=== PATIENT | female | born 1950 | race Caucasian/White ===

== ENCOUNTER → 2020-04-05 08:21 | Outpatient (BNVA) | payer MEDICARE, SELFPAY | PROVIDERS: PCP Physician Assistant Medical; Visit Provider Urology | DX: N28.1 Cyst of kidney, acquired (principal); R31.29 Other microscopic hematuria | CPT/HCPCS: 81002; 99202 ==

== ENCOUNTER 2020-05-24 08:48 | Outpatient (REF) | payer MEDICARE, SELFPAY ==
[2020-05-25 16:16] LABS: Urine Cytology See Pathology rpt
== END 2020-05-24 08:49 | disposition home or self-care (01) ==
LOC: CF 08:48
PROVIDERS: Visit Provider Urology
DX: R31.29 Other microscopic hematuria (principal); N28.1 Cyst of kidney, acquired; Z87.891 Personal history of nicotine dependence
CPT/HCPCS: 52000; 81002; 88112; 99212

== ENCOUNTER → 2021-05-30 08:28 | Outpatient (BNVA) | payer MEDICARE, SELFPAY | PROVIDERS: Visit Provider Urology | DX: N28.1 Cyst of kidney, acquired (principal); R31.29 Other microscopic hematuria | CPT/HCPCS: Q3014 ==

== ENCOUNTER 2022-05-15 08:16 | Outpatient (REF) | payer MEDICARE, SELFPAY ==
--- NOTE | ~2022-05-15 | US_ITS ---
EXAMINATION: US RETROPERITONEAL LIMITED (RENAL ONLY) CLINICAL INFORMATION: Calculus of kidney. COMPARISON: None TECHNIQUE: Real-time imaging of the kidneys. FINDINGS: RIGHT KIDNEY: 12.0 x 5.3 x 5.8 cm (SAG x AP x TRV). The kidney is normal in size and contour. Renal cortical thickness is normal. No hydronephrosis. Cyst upper pole measures 18 mm. This appears simple, Bosniak 1 no follow-up indicated. Diffuse increased cortical echogenicity. Non-obstructing stone lower pole measures 4 mm, 3 mm an upper pole stone measures 5 mm. LEFT KIDNEY: 10.2 x 4.6 x 4.9 cm (SAG x AP x TRV). The kidney is normal in size and contour. No renal calculi or hydronephrosis. Cyst upper pole measures 2.9 cm appears simple Bosniak 1 no follow-up indicated. Minimal fullness of the renal collecting system nonspecific. No obstructing source seen. US/US renal BI IMPRESSION: Nonobstructing right-sided renal calculi. No hydronephrosis. Consider CT as warranted clinically. Mild fullness of the left renal collecting system.
== END 2022-05-15 08:17 | disposition home or self-care (01) ==
LOC: HO.US 08:16
PROVIDERS: Visit Provider Urology
DX: N20.0 Calculus of kidney (principal); N28.1 Cyst of kidney, acquired
CPT/HCPCS: 76775

== ENCOUNTER → 2022-05-30 11:08 | Outpatient (BNVA) | payer MEDICARE, SELFPAY | PROVIDERS: PCP Physician Assistant Medical; Visit Provider Urology | DX: N20.0 Calculus of kidney (principal); N28.1 Cyst of kidney, acquired; R31.29 Other microscopic hematuria | CPT/HCPCS: Q3014 ==

== ENCOUNTER 2023-05-21 10:23 | Outpatient (REF) | payer MEDICARE, SELFPAY ==
--- NOTE | ~2023-05-21 | US_ITS ---
EXAMINATION: US RETROPERITONEAL LIMITED (RENAL ONLY) CLINICAL INFORMATION: Calculus of kidney. COMPARISON: Renal ultrasound 05/15/2022. TECHNIQUE: Real-time imaging of the kidneys. FINDINGS: RIGHT KIDNEY: 11.2 x 6.2 x 6.1 cm (SAG x AP x TRV). The kidney is normal in size and contour. Renal cortical thickness is normal. No renal calculi or hydronephrosis. Cystic focus right renal interpolar region measuring up to 2.5 cm, simple appearing, not requiring follow-up. Mild caliectasis. Increased renal echogenicity potentially representing elements of medical renal disease. LEFT KIDNEY: 10.1 x 5.3 x 4.2 cm (SAG x AP x TRV). The kidney is normal in size and contour. Renal cortical thickness is normal. No renal calculi or hydronephrosis. Cystic focus left renal lower pole measuring up to 3.8 cm, simple appearing, not requiring follow-up. Mild calyectasis.Increased renal echogenicity potentially representing elements of medical renal disease. US/US renal BI IMPRESSION: 1. No nephrolithiasis or hydronephrosis. 2. Bilateral simple appearing renal cysts the largest measuring up to 3.8 cm, which do not require follow-up. 3. Bilateral increased renal echogenicity potentially representing elements of medical renal disease.
== END 2023-05-21 10:24 | disposition home or self-care (01) ==
LOC: HO.HMGCX 10:23
PROVIDERS: PCP Physician Assistant Medical; Visit Provider Urology
DX: N20.0 Calculus of kidney (principal)
CPT/HCPCS: 76775

== ENCOUNTER 2023-05-31 13:26 | Outpatient (AMB) | payer MEDICARE, SELFPAY ==
--- NOTE | 2023-05-31 13:56 | A.OFFVIS_ITS ---
Intake Intake Visit Reasons: 1Y US(SET) Intake Note: Patient presents today for a yearly follow up Meds- None Allergies to Antibiotic- No Known Allergies Blood Thinner- None Rn Embedded Required: No Accompanied by: Self / Same As Patient Allergies No Known Allergies [No Known Allergies*] Allergy (Verified 05/31/23 14:00) Medication List - Last Reconciled 05/31/23 by He Garcia MD levothyroxine 137 mcg PO DAILY lisinopril 10 mg PO DAILY oxybutynin chloride ER 5 mg PO DAILY 30 days HPI HPI Comments History of Present Illness Details Marianne hicks is a very pleasant female. She is a patient of Dr. Paiz. early is seen for the following urologic conditions - microscopic hematuria Discussed imaging results Stable cysts Has new symptoms of urinary urgency and frequency And follow-up with bathroom planning Has minor stress incontinence Discussed trial of overactive bladder medications Oxybutynin provided 2 month follow-up tele Complex renal cyst and hematuria Hematuria was diagnosed during - had noted gross hematuria which responded to ciprofloxacin through PCP and presumed UTI They are here for the - Since the last visit the patient has - hematuria has resolved, test negative today Relevant medical history for - 40 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 Radiographic imaging: - CT KUB 03/31 bilateral renal cysts, 2.5 cm - 05/02 renal ultrasound, bilateral renal cysts up to 2.5 cm, 6 mm stone right side - 05/03 renal ultrasound, bilateral cysts, 4 mm and 5 mm stones on right side Other investigations - cytology, normal Cystoscopy findings normal. Therapeutic plan - review in 12 months [facility] Medical History Cough Pneumonitis Shoulder stiffness Shoulder weakness Shoulder pain Dislocation of right shoulder joint Social History Years Smoked: 10 years Review of Systems Const Denies chills and Denies fever(s) Card Reports no additional complaints and Denies syncope Resp Denies cough GI Denies abdominal pain and Denies heartburn Reports as per HPI and Denies change in libido Neuro Denies syncope Psych Denies change in libido Endo Denies change in libido Physical Exam Const General: cooperative, healthy appearing, comfortable and no acute distress Orientation/consciousness: patient oriented x3 HEENT Face and sinus: Yes normal facial exam Mouth: moist mucous membranes Neck Neck: Yes normal visual inspection, Yes full ROM and Yes trachea midline Chest Chest palpation & inspection: normal inspection of the chest Resp Effort & Inspection: normal respiratory effort, able to speak in complete sentences and no respiratory distress GI Inspection: Yes normal to inspection Back/Spine/Pelvis Cervical Spine: normal cervical lordosis Thoracic/Lumbar Spine: thoracic and lumbar spine normal to inspection Skin General skin exam: no rashes or lesions noted Neuro General: patient oriented x3, gait normal, tone normal and moves all extremities Extrem General: Yes normal to inspection and Yes capillary refill normal Results AMB Urinalysis, Automated UA Leukoctes 0 Martha/uL Last Edit by Fior Olivo [facility] on 05/31/23 14 :07 UA Nitrite Negative Last Edit by Fior Olivo [facility] on 05/31/23 14: 07 UA Urobilinogen 0.2 mg/dL Last Edit by Fior Olivo [facility] on 4 14:07 UA Protein 0 mg/dL Last Edit by Fior Olivo [facility] on 05/31/23 14:07 UA pH 7.0 Last Edit by Fior Olivo [facility] on 05/31/23 14:07 UA Blood 0 Roger/uL Last Edit by Fior Olivo [facility] on 05/31/23 14:07 UA Specific [place] 1.010 Last Edit by Fior Olivo [facility] on 14:07 UA Ketone Negative Last Edit by Fior Olivo [facility] on 05/31/23 14:0 7 UA Bilirubin 0 mg/dL Last Edit by Fior Olivomalachi Olivo [facility] on 05/31/23 14: 07 UA Glucose 0 mg/dL Last Edit by Fior Olivomalachi Olivo [facility] on 05/31/23 14:07 Results Reviewed Results Reviewed: Laboratory Last Values Urine pH (Auto) 7.0 05/31/23 14:02 Specific [place] (Auto) 1.010 05/31/23 14:02 Urine Protein (Auto) 0 mg/dL 05/31/23 14:02 Glucose (UA)(Auto) 0 mg/dL 05/31/23 14:02 Urine Ketones (Auto) Negative 05/31/23 14:02 Urine Blood (Auto) 0 Roger/uL 05/31/23 14:02 Urine Nitrite (Auto) Negative 05/31/23 14:02 Urine Bilirubin (Auto) 0 mg/dL 05/31/23 14:02 Urine Urobilinogen (Auto) 0.2 mg/dL 05/31/23 14:02 Leukocyte Esterase (Auto) 0 Martha/uL 05/31/23 14:02 Assessment & Plan Assessment & Plan (1) Bladder instability: Code(s): N32.89 - Other specified disorders of bladder Plan Trial oxybutynin Orders: Orders AMB Urinalysis Automated Today R33.9 - Retention of urine, unspecified Medications: New oxybutynin chloride ER 5 mg PO DAILY 30 days 30 tabs 1RF N32.81 - Overactive bladder, N32.89 - Other specified disorders of bladder, R39.15 - Urgency of urination Patient Instructions: Imaging studies, laboratory and physical exam results were discussed and reviewed in detail. No major barriers to patient understanding were identified. An opportunity to ask questions regarding the treatment plan was provided. All questions were answered. The patient expressed understanding and agreement with the above treatment plan. The patient is aware they should contact our office by phone for worsening of their current condition or the appearance of new urologic symptoms. Compliance is encouraged with any medications and followup testing that is ordered. It is a privilege to participate in the urologic care of your patient. If you have any questions or concerns regarding treatment for the above conditions, or other urologic issues, please do not hesitate to contact me. The office telephone contact is [phone]. This note is constructed using voice recognition software. While every effort has been made to ensure accuracy department manager errors may have been included. Yours sincerely, Dr He Garcia MD, ETEL[facility] - Urology Providers of Expert, Compassionate Care for the Genitourinary System Coding Level of Care Code Est Pt Level 4 (13316) Diagnoses Bladder instability N32.89
== END 2023-05-31 14:42 | disposition home or self-care (01) ==
PROVIDERS: Visit Provider Urology
DX: R33.9 Retention of urine, unspecified (principal); N32.89 Other specified disorders of bladder
CPT/HCPCS: 99214

== ENCOUNTER → 2023-05-31 13:26 | Outpatient (BNVA) | payer MEDICARE, SELFPAY | PROVIDERS: Visit Provider Urology | DX: N32.89 Other specified disorders of bladder (principal) | CPT/HCPCS: 81003; 99212 ==

== ENCOUNTER 2023-07-31 14:52 | Outpatient (AMB) | payer MEDICARE, SELFPAY ==
--- NOTE | 2023-07-31 14:53 | A.OFFVIS_ITS ---
Intake Visit Reasons: 2m follow up Intake Note: Patient presents today for a 2 month follow-up via phone: Meds- Oxybutynin Allergies to Antibiotic- No Known Allergies Blood Thinner- None Race Starter Required: No Accompanied by: Self / Same As Patient Allergies No Known Allergies [No Known Allergies*] Allergy (Verified 05/31/23 14:00) Medication List - Last Reconciled 07/31/23 by He Garcia MD levothyroxine 137 mcg PO DAILY lisinopril 10 mg PO DAILY oxybutynin chloride ER 10 mg PO DAILY 30 days HPI Comments Details: Marianne hicks is a very pleasant female. She is a patient of Dr. Paiz. early is seen for the following urologic conditions - microscopic hematuria - instability of bladder Telemedicine Evaluation 15 min Consultation ipadio Hilario Video attempted Good reasonable response to oxybutynin 5 mg Would like to try increased dose Prescription for 10 mg provided Two month follow-up tele Has new symptoms of urinary urgency and frequency And follow-up with bathroom planning Has minor stress incontinence Complex renal cyst and hematuria Hematuria was diagnosed during - had noted gross hematuria which responded to ciprofloxacin through PCP and presumed UTI They are here for the - Since the last visit the patient has - hematuria has resolved, test negative today Relevant medical history for - 40 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 Radiographic imaging: - CT KUB 03/31 bilateral renal cysts, 2.5 cm - 05/02 renal ultrasound, bilateral renal cysts up to 2.5 cm, 6 mm stone right side - 05/03 renal ultrasound, bilateral cysts, 4 mm and 5 mm stones on right side Other investigations - cytology, normal Cystoscopy findings normal. Therapeutic plan - review in 12 months [facility] Medical History Cough Pneumonitis Shoulder stiffness Shoulder weakness Shoulder pain Dislocation of right shoulder joint Social History Years Smoked: 10 years Review of Systems Const Denies chills and Denies fever(s) Card Reports no additional complaints and Denies syncope Resp Denies cough GI Denies abdominal pain and Denies heartburn Reports as per HPI and Denies change in libido Neuro Denies syncope Psych Denies change in libido Endo Denies change in libido Physical Exam Const General: cooperative, healthy appearing, comfortable and no acute distress Orientation/consciousness: patient oriented x3 HEENT Face and sinus: Yes normal facial exam Mouth: moist mucous membranes Neck Neck: Yes normal visual inspection, Yes full ROM and Yes trachea midline Chest Chest palpation & inspection: normal inspection of the chest Resp Effort & Inspection: normal respiratory effort, able to speak in complete sentences and no respiratory distress GI Inspection: Yes normal to inspection Back/Spine/Pelvis Cervical Spine: normal cervical lordosis Thoracic/Lumbar Spine: thoracic and lumbar spine normal to inspection Skin General skin exam: no rashes or lesions noted Neuro General: patient oriented x3, gait normal, tone normal and moves all extremities Extrem General: Yes normal to inspection and Yes capillary refill normal Assessment & Plan Assessment & Plan (1) Bladder instability: Code(s): N32.89 - Other specified disorders of bladder Category: Medical Plan Two month follow-up tele Medications: New oxybutynin chloride ER 10 mg PO DAILY 30 tabs 1RF 30 days N32.81 - Overactive bladder, N32.89 - Other specified disorders of bladder, R39.15 - Urgency of urination Discontinued oxybutynin chloride ER Discontinued Reason: Patient Completed Course 5 mg PO DAILY 30 days 30 tabs 1RF N32.81 - Overactive bladder, N32.89 - Other specified disorders of bladder, R39.15 - Urgency of urination Patient Instructions: Imaging studies, laboratory and physical exam results were discussed and reviewed in detail. No major barriers to patient understanding were identified. An opportunity to ask questions regarding the treatment plan was provided. All questions were answered. The patient expressed understanding and agreement with the above treatment plan. The patient is aware they should contact our office by phone for worsening of their current condition or the appearance of new urologic symptoms. Compliance is encouraged with any medications and followup testing that is ordered. It is a privilege to participate in the urologic care of your patient. If you have any questions or concerns regarding treatment for the above conditions, or other urologic issues, please do not hesitate to contact me. The office telephon e contact is [phone]. This note is constructed using voice recognition software. While every effort has been made to ensure accuracy purifying plant operator errors may have been included. Yours sincerely, Dr He Garcia MD, ET[facility] - Urology Providers of Expert, Compassionate Care for the Genitourinary System Coding Level of Care Code Tele Est Pt Level 3 (84855) Diagnoses Bladder instability N32.89
== END 2023-07-31 15:09 | disposition home or self-care (01) ==
LOC: HO.HUSH 14:53
PROVIDERS: PCP Physician Assistant Medical; Visit Provider Urology
DX: N32.89 Other specified disorders of bladder (principal)
CPT/HCPCS: 99213

== ENCOUNTER → 2023-07-31 14:52 | Outpatient (BNVA) | payer MEDICARE, SELFPAY | PROVIDERS: PCP Physician Assistant Medical; Visit Provider Urology ==

== ENCOUNTER 2024-04-21 08:47 | Outpatient (REF) | payer MEDICARE, SELFPAY ==
--- OUTSIDE RECORDS SUMMARY | 2024-04-21 09:10 | XMS_ITS | Encounter Summary ---
Author Organization [email or web address] Address [address] [place] [address] Care Team Providers Care Glue Jointer Operator Name Role Phone Unavailable Primary Care Provider Unavailabl e Encounter Details Date Type Department Care Team (Latest Contact Info) Description 04/08/2024 Travel Social History Tobacco Use Types Packs/Day Years Used Date Smoking Tobacco: Never Assessed Depression Answer Date Recorded Patient Health Questionnaire-9 Score 6 04/09/2024 Patient Health Questionnaire-9 Score 6 04/09/2024 Last PHQ-9: Questionnaire Data Not on file 0 04/09/2024 Housing Stability Answer Date Recorded What is your housing situation today? I have troy rosario 04/09/[address] you li ve. Do you have problems with any of the following? None of the above 04/09/2024 Food Insecurity Answer Date Recorded Within the past 12 months, y ou worried that your food would run out before you got money to buy more: Never True 04/09/2024 Within the past 12 months,th e food you bought just didn't last and you didn't have enough money to get more: Never True Transportation Answer Date Recorded In the past 12 months, has l ack of transportation kept you from medical appts, meetings, work or from getting things needed for daily living? No 04/09/2024 Utilities Answer Date Recorded In the past 12 months, has t he electric, gas, oil or water company threatened to shut off services in your home? No 04/09/2024 Depression Answer Date Recorded Patient Health Questionnaire-2 Score 2 04/09/2024 Internet Access Answer Date Recorded Internet Access Q1 Yes 04/09/2024 Internet Access Q2 Not on file 04/09/2024 Comments Unknown Sex and Gender Information Value Date Recorded Sex Assigned at Female 04/08/2024 8:23 AM EST Legal Sex Female 10:49 AM EDT Gender Identity Female 04/08/2024 8:23 AM EST Sexual Orientation Straight 04/08/2024 8: 23 AM EST documented as of this encounter Plan of Treatment Not on file documented as of this encounter Visit Diagnoses Not on filedocumented in this encounter
--- OUTSIDE RECORDS SUMMARY | 2024-04-21 09:10 | XMS_ITS | Encounter Summary ---
Author Organization [employer] Address [address] [place] [address] Care Team Providers Care Stenocaptioner Name Role Phone Name, Escobar VILLATORO Primary Care Provider [phone] Encounter Details Date Type Department Care Team (Latest Contact Info) Description 04/09/2024 Travel Social History Tobacco Use Types Packs/Day Years Used Date Smoking Tobacco: Never Smokeless Tobacco: Never Alcohol Use Standard Drinks/Week Comments Yes 0 (1 standard drink = 0.6 oz pur e alcohol) Depression Answer Date Recorded Patient Health Questionnaire-9 Score 6 04/09/2024 Patient Health Questionnaire-9 Score 6 04/09/2024 Last PHQ-9: Questionnaire Data Not on file 0 04/09/2024 Housing Stability Answer Date Recorded What is your housing situation today? I have troy ponce 04/09/[address] you li [...] Diagnoses Not on filedocumented in this encounter Additional Health Concerns Assessment Noted Time PHQ-9 Depression Total Score: 6 04/09/19 11:16 AM EST documented as of this encounter Care Teams Stenocaptioner Relationship Specialty Start Date End Date Name, MD Escobar [address] [place] [address] PCP - General Internal Medicine 04/09/24 documented as of this encounter
--- OUTSIDE RECORDS SUMMARY | 2024-04-21 09:10 | XMS_ITS | Encounter Summary ---
Author Organization [employer] Address [address] [place] [address] Care Team Providers Care Leader Tier Name Role Phone Unavailable Primary Care Provider Unavailabl e Reason for Visit * Reason Comments Pre-visit Planning SDOH unable to reach LVM Encounter Details Date Type Department Care Team ([facility] st Contact Info) Description 04/01/2024 Patient Outreach [facility] [address] [place] [address] Name, MD Escobar [address] [place] [address] Pre-visit Planning (SDOH unable to reach LVM ) Social History Tobacco Use Types Packs/Day Years Used Date Smoking Tobacco: Never Assessed Comments Unknown Sex and Gender Information Value Date Recorded Sex Assigned at Female 04/08/2024 8:23 AM EST Legal Sex Female 10:49 AM EDT Gender Identity Female 04/08/2024 8:23 AM EST Sexual Orientation Straight 04/08/2024 8: 23 AM EST documented as of this encounter Progress Notes * Vicky Santana - 04/01/2024 12:54 PM EST CC Vicky Marshall placed outbound call to patient to complete pre-visit planning. No answer at this time. Patient name and were not confirmed. CC left voicemail requesting return call. Direct contactinformation provided. documented in this encounter Plan of Treatment Not on file documented as of this encounter Visit Diagnoses Not on filedocumented in this encounter
--- OUTSIDE RECORDS SUMMARY | 2024-04-21 09:10 | XMS_ITS | Encounter Summary ---
Author Organization [employer] Address [address] [place] [address] [address] [place] [address] Care Team Providers Care Clinical Laboratory Director Name Role Phone NameEscobar MD Primary Care Provider [phone] Reason for Referral * Imaging (Routine) - Authorized Specialty Diagnoses / Procedures Referred By Contac t Referred To Contact Radiology Diagnoses Osteoporosis without current pathological fracture, unspecified osteoporosis type Procedures BD DEXA Axial NameEscobar MD [address] [place] [id number] Phone: tel: fax: [address] Phone: tel: fax: Referral ID Status Reason Start Date Expiration Date V isits Requested Visits Authorized [id number] Authorized 04/09/2024 04/09/2025 1 1 Reason for Visit * Reason Comments New patient visit Encounter Details Date Type Department Care Team (Late st Contact Info) Description 04/09/2024 10:45 AM EST Office Visit [facility] [address] [place], [place] [id number] Escobar Frazier MD [address] [place], [place] [id number] Hypertension, unspecified type (Primary Dx); Hypothyroidism, unspecified type; Osteoporosis without current pathological fracture, unspecified osteoporosis type; Screening for cholesterol level; Screening for diabetes mellitus; Former smoker; Overactive bladder Social History Tobacco Use Types Packs/Day Years Used Date Smoking Tobacco: Never Smokeless Tobacco: Never Tobacco Cessation:Counseling Given: Not Answered Alcohol Use Standard Drinks/Week Comments Yes 0 [...] AM EST documented as of this encounter Last Filed Vital Signs Vital Sign Reading Time Taken Comments Blood Pressure 136/92 04/09/2024 10:27 AM EST Pulse 82 04/09/2024 10:27 AM EST Temperature 36 ??C (96.8 ??F) 04/09/2024 10:27 AM EST Respiratory Rate 21 04/09/2024 10:27 AM EST Oxygen Saturation 97% 04/09/2024 10:27 AM EST Inhaled Oxygen Concentration - - Weight 92.6 kg (204 lb 3.2 oz) 04/09/2024 10:27 AM EST Height 157.5 cm (5' 2 ) 04/09/2024 10:27 AM EST Body Mass Index 37.35 04/09/2024 10:27 AM EST documented in this encounter Progress Notes * Escobar Frazier, - 04/09/2024 10:45 AM EST Subjective Patient ID: Marianne Hodges is a 73 y.o. female who presents for New patient visit. Patient comes for the first time. She is transferring from [facility]. She has a past medical history of hypertension, hypothyroidism, osteoporosis, overactive bladder. She is a former smoker. The patient is up-to-date with low radiation CT scans and mammograms that she is doing at [facility]. She tells me she is up-to-date with her colonoscopy. Current medication regimen includes lisinopril and Synthroid. She asked me to refill medication she was using for overactive bladder. The patient is a retired hairdresser. She lives with her . The patient has custody of her [facility] that has severe autism. The patient exercises regularly. In general she tries to avoid using medications. She has been trying to treat her osteoporosis with diet and exercise. In the past she refused the use of Fosamax. Her last bone density test was in 2021. She has a good exercise tolerance. No chest pains or shortness of breath. She goes to the gym several times a week and feels frustrated about her inability to lose any weight. Review of Systems Constitutional: Negative for chills and fever. HENT: Negative for sore throat. Respiratory: Negative for cough, shortness of breath and wheezing. Cardiovascular: Negative for chest pain, palpitations and leg swelling. Gastrointestinal: Negative for abdominal pain. Visit Vitals BP (!) 136/92 (BP Location: Left arm, Patient Position: Sitting, BP Cuff Size: Adult) Pulse 82 Temp 96.8 ??F (36 ??C) (Temporal) Resp 21 Ht 5' 2 (1.575 m) Wt 204 lb 3.2 oz (92.6 kg) SpO2 97% BMI 37.35 kg/m?? Smoking Status Never BSA 2.01 m?? Objective Physical Exam Constitutional: Appearance: Normal appearance. Cardiovascular: Rate and Rhythm: Normal rate and regular rhythm. Heart sounds: No murmur heard. No gallop. Pulmonary: Effort: Pulmonary effort is normal. No respiratory distress. Breath sounds: Normal breath sounds. No wheezing. Musculoskeletal: Right lower leg: No edema. Left lower leg: No edema. Neurological: Mental Status: She is alert. Assessment/Plan Diagnoses and all orders for this visit: Hypertension, unspecified type Comments: Continue lisinopril. Recheck CMP. Orders: - CBC auto differential; Future - Comprehensive Metabolic Panel; Future Hypothyroidism, unspecified type Comments: Continue current dose of levothyroxine for now. Recheck TSH. Orders: - TSH W/Reflex to FT4; Future Osteoporosis without current pathological fracture, unspecified osteoporosis type Comments: Continue exercising. We discussed importance of adequate calcium and vitamin D intake. Check CMP and vitamin D levels. Recheck DEXA scan. Orders: - Comprehensive Metabolic Panel; Future - Vitamin D, 25-Hydroxy, Total, Immunoassay; Future - BD DEXA Axial; Future Screening for cholesterol level Comments: Check fasting lipids Orders: - Lipid Panel, Standard; Future Screening for diabetes mellitus Comments: Check fasting glucose and hemoglobin A1c Orders: - Hemoglobin A1c; Future Former smoker Comments: Continue yearly low radiation CT scan. She quit smoking 13 years ago. Overactive bladder Comments: I refilled the patient's oxybutynin as requested. Orders: - oxybutynin XL (Ditropan-XL) 5 MG 24 hr tablet; Take 1 tablet (5 mg) by mouth Once per day. documented in this encounter Plan of Treatment Scheduled Orders Name Type Priority Associated Diagnoses Orde r Schedule CBC auto differential Lab Routine Hypertension, unspecified type Expected: 04/09/2024 (Approximate), Expires: 04/09/2025 Comprehensive Metabolic Panel Lab Routine Hypertension, unspecified type Osteoporosis without current pathological fracture, unspecified osteoporosis type Expected: 04/09/2024 (Approximate), Expires: 04/09/2025 Lipid Panel, Standard Lab Routine Screening for cholesterol level Expected: 04/09/2024 (Approximate), Expires: 04/09/2025 Hemoglobin A1c Lab Routine Screening for diabetes mellitus Expected: 04/09/2024 (Approximate), Expires: 04/09/2025 Vitamin D, 25-Hydroxy, Total, Immunoassay Lab Routine Osteoporosis without current pathological fracture, unspecified osteoporosis type Expected: 04/09/2024 (Approximate), Expires: 04/09/2025 BD DEXA Axial Imaging Routine Osteoporosis without current pathological fracture, unspecified osteoporosis type Expected: 04/09/2024, Expires: 04/09/2025 TSH W/Reflex to FT4 Lab Routine Hypothyroidism, unspecified type Expected: 04/09/2024 (Approximate), Expires: 04/09/2025 documented as of this encounter Visit Diagnoses Diagnosis Hypertension, unspecified type- Primary Hypothyroidism, unspecified type Osteoporosis without current pathological fracture, unspecified osteoporosis type Screening for cholesterol level Screening for diabetes mellitus Former smoker Personal history of tobacco use, presenting hazards to health Overactive bladder Hypertonicity of bladder documented in this encounter Additional Health Concerns Assessment Noted Time PHQ-9 Depression Total Score: 6 04/09/19 25 11:16 AM EST documented as of this encounter Care Teams Clinical Laboratory Director Relationship Specialty Start Date End Date Name, MD Escobar [address] [place] [address] PCP - General Internal Medicine 04/09/24 documented as of this encounter
--- OUTSIDE RECORDS SUMMARY | 2024-04-21 09:11 | XMS_ITS | Clinical Summary ---
Author Organization [employer] Address [address] [place] [address] [address] [address] Care Team Providers Care Laboratory Engineer Name Role Phone Name, Escobar VILLATORO Primary Care Provider [phone] Allergies No known active allergies Medications levothyroxine (Synthroid, Levoxyl) 137 MCG tablet Active lisinopril 10 MG tablet Active oxybutynin XL (Ditropan-XL) 5 MG 24 hr tabletIndicati ons:Overactive bladder Take 1 tablet (5 mg) by mouth Once per day. 30 tablet 2 5 025 Active oxybutynin XL (Ditropan-XL) 5 MG 24 hr tablet Take 1 tablet by mouth Once per day. 4 025 Discontinued(Re order (will not trigger notification to Pharmacy)) Active Problems Problem Noted Date Diagnosed Date Hypothyroidism 04/09/2024 Hypertension 04/09/2024 Osteoporosis without current pathological fractu re 04/09/2024 History of colonoscopy 04/09/2024 Encounters Date Type Department Care Team Description 04/09/2024 10:45 AM EST Office Visit [facility] [address] [place] [address] Name, MD Escobar Hypertension, unspecified type (Primary Dx); Hypothyroidism, unspecified type; Osteoporosis without current pathological fracture, unspecified osteoporosis type; Screening for cholesterol level; Screening for diabetes mellitus; Former smoker; Overactive bladder 04/09/2024 Travel 04/08/2024 Travel 04/01/2024 Patient Outreach [facility] [address] [place] [address] Name, MD Escobar Pre-visit Planning ([facility] unable to reach M ) from Last 3 Months Immunizations Name Administration Dates Next Due Influenza High-dose Quadriva lent Preservative Free 11/24/2021,12/24/2019 Influenza Injectable Quadriv alant Preservative Free IIV4 MDCK 12/18/2016 Influenza Quadrivalent Adjuvanted 12/23/2020 Influenza, High Dose Seasona l, Preservative Free 01/01/2023,11/24/2017 Influenza, IIV3, injectable 01/13/2016,0 11/19/2014,12/14/2013,11/25,12/21/2011,12/15/2010,01/23/2010 ,12/04/2008,12/22/2007,01/02/2007 Influenza, trivalent, adjuvanted 12/14/2023,11/10 Novel [id number], preservative-free 03/23/2009 Pneumococcal Conjugate PCV 13 02/04/2018 Pneumococcal Polysaccharide PPSV23 12/24/2019, Td (adult), 5 Lf tetanus tox oid, preservative free, adsorbed 06/26/2022 Td (adult), unspecified 10/02/2004 Tdap 01/14/2012 Zoster, Recombinant 08/03/2020,04/07/2020 Zoster, live 02/02/2013 Social History Tobacco Use Types Packs/Day Years [...] Orientation Straight 04/08/2024 8: 23 AM EST Last Filed Vital Signs Vital Sign Reading [...] Mass Index 37.35 04/09/2024 10:27 AM EST Plan of Treatment Health Maintenance Due Date Last Done Comments CT Colonography 1952 Colonoscopy 1952 Colorectal Cancer Screening 1952 FIT DNA/Cologuard 1952 FIT 1952 FOBT 1952 Lipid Panel 1952 Sigmoidoscopy 1952 Alcohol/Substance Use Screening 1964 Hepatitis C Screening 1970 Mammogram 1992 COVID-19 Vaccine ( season) 2023 12/14/2021, 07/06/2021, 02/03/2021, Additional history exists Depression Screening 04/09/2025 04/09/2024, 04/09/19 SDOH Screening 04/09/2025 04/09/2024 Tobacco Screening 04/09/2025 04/09/2024 RSV Patients and Patients Aged 60 years or older (1 - 1-dose 75+ series) 10/28/2027 DTaP/Tdap/Td Vaccines (3 - Td or Tdap) 06/26/2032 06/26/2022, 01/14/2012, 10/02/2004 Pneumococcal Vaccine: 50+ Years Completed 12/24/2019, 02/04/2018, 03/08/2010 Zoster Vaccines Completed 08/03/2020, 03/12, 02/02/2013 Influenza Vaccine Completed 12/14/2023, , 11/24/2021, Additional history exists HIB Vaccines Aged Out No longer eligi ble based on patient's age to complete this topic HPV Vaccines Aged Out No longer eligi ble based on patient's age to complete this topic Hepatitis A Vaccines Aged Out No long er eligible based on patient's age to complete this topic Hepatitis B Vaccines Aged Out No long er eligible based on patient's age to complete this topic IPV Vaccines Aged Out No longer eligi ble based on patient's age to complete this topic Meningococcal Vaccine Aged Out No fabricio gianfranco eligible based on patient's age to complete this topic RSV under 20 months Aged Out No longe r eligible based on patient's age to complete this topic Rotavirus Vaccines Aged Out No longer eligible based on patient's age to complete this topic Insurance [facility] Care Teams Laboratory Engineer Relationship Specialty Start Date End Date Name, MD Escobar [address] [place] [address] PCP - General Internal Medicine 04/09/24
--- OUTSIDE RECORDS SUMMARY | 2024-04-21 09:11 | XMS_ITS | Clinical Summary ---
Author Organization [facility] Address [address] [place] [address] Phone Care Team Providers Care Chief Marketing Officer Name Role Phone Name, Escobar VILLATORO Primary Care Provider [phone] Encounters Date Type Department Care Team Description 01/27/2024 11:15 AM EST - 01/27/2024 11:59 PM EST Hospital Encounter [facility] CT Scan [address] [place] [address] Personal history of nicotine dependence Discharge Disposition: Home or Self Care 01/24/2024 Telephone Lung Screening Program - [place] [address] [facility] [address] [place] [id number] [place] Appointment (reminder) from Last 3 Months Surgical History Surgery Date Site/Laterality Comments BUNIONECTOMY in the 's PROCEDURE: NV CORRJ HLX VLGS BNCTY SESMDC W/DOUBLE OSTEOTOMY COLONOSCOPY Dec 2014 PROCEDURE: HISTORICAL COLONOSCOPY; COMMENT: diminutive polyps, diverticulosis, ext hemorrhoids Medical History Medical History Date Comments Unspecified hypothyroidism 05/30/2005 DX:Un specified hypothyroidism Allergic rhinitis, cause unspecified 05/30/2005 DX:Allergic rhinitis, cause unspecified Osteopenia after menopause 05/30/2005 DX:Os teopenia after menopause Osteoarthrosis, unspecified whether generalized or localized, unspecified site 05/30/2005 DX:Osteoarthrosis, unspecifi ed whether generalized or localized, unspecified site Right bundle branch block 05/30/2005 DX:Rig ht bundle branch block Anxiety 02/21/2015 DX:Anxiety Family History Medical History Relation Name Comments Hypertension Brother Hypertension Mother Other: HOCM Mother Other: Heart Disease Mother Breast cancer Sister 1 age mid 40s 10 year surviv or Hypertension Sister 1 age mid 40s Hypertension Sister 2 Colon cancer Neg Hx Ovarian cancer Neg Hx Pancreatic cancer Neg Hx Prostate cancer Neg Hx Uterine cancer Neg Hx Relation Name Status Comments Brother HTN Daughter 1 Alive history substan ce abuse Daughter 2 Alive Daughter 3 Alive Father copd Mother copd Sister 1 age mid 40s Alive hypertension, C OPD Sister 2 Alive PVD, HTN, COPD Son Alive history substan ce abuse Social History Tobacco Use Types Packs/Day Years Used Date Smoking Tobacco: Former Cigarettes 1 45.4 0 1965 - 03/05/2011 Smokeless Tobacco: Never Alcohol Use Standard Drinks/Week Comments Yes 0 (1 standard drink = 0.6 oz pur e alcohol) Comments Unknown Sex and Gender Information Value Date Recorded Sex Assigned at Female 04/10/2024 11:13 AM EST Legal Sex Female 4:44 AM EST Gender Identity Female 04/10/2024 11:13 AM EST Sexual Orientation Choose not to disclose 2024 11:13 AM EST Obstetrics History Last Filed Vital Signs Vital Sign Reading Time Taken Comments Blood Pressure 120/60 07/09/2023 7:37 AM EDT Pulse 75 07/09/2023 7:37 AM EDT Temperature - - Respiratory Rate - - Oxygen Saturation - - Inhaled Oxygen Concentration - - Weight 90.4 kg (199 lb 3.2 oz) 07/09/2023 7:37 A M EDT Height 158.8 cm (5' 2.5 ) 07/09/2023 7:37 AM EDT Body Mass Index 35.85 07/09/2023 7:37 AM EDT Plan of Treatment Upcoming Encounters Date Type Department Care Team (Late st Contact Info) Description 07/28/2024 9:00 AM EDT Appointment [facility] Bone Density [address] [place] [address] Health Maintenance Due Date Last Done Comments Hepatitis A Vaccines (1 of 2 - Risk 2-dose series) 10/28/1969 Hepatitis B Vaccines (1 of 3 - Risk 3-dose series) 2012 RSV Immunization Patients 60+ Years Old (1 - Risk 60-74 years 1-dose series) 2012 Colorectal Cancer Screening: Colonoscopy 02/17/2022 Depression Screening 02/17/2022 Falls Risk Assessment 02/17/2022 Hepatitis C Screening 02/17/2022 Medicare Annual Wellness Visit 02/17/2022 Social Influencers of Health Screening 02/17/2022 COVID-19 Vaccine ( season) 2023 12/14/2021, 07/06/2021, 02/03/2021, Additional history exists Hypertension/CHF/CAD Annual BMP Blood Test 07/10/2024 07/11/2023 Lung Cancer Screening (Low Dose CT) 01/26/2025 01/27/2024, 05/24/2022, 05/15/2021, Additional history exists Breast Cancer Screening 07/24/2025 07/25/19 24, 07/25/2023, 07/24/2021, Additional history exists Cholesterol Screening (Lipid Panel) 07/10/2028 07/11/2023 Osteoporosis Screening (Bone Density Screening) 07/25/2031 07/24/2021, 07/29/2018 DTaP,Tdap,and Td Vaccines (4 - Td or Tdap) 06/26/2032 06/26/2022, 01/14/2012, [...] on patient's age to complete this topic MMR Vaccines Aged Out No longer eligi ble based on patient's age to complete this topic Meningococcal ACWY Vaccine Aged Out N o longer eligible based on patient's age to complete this topic Meningococcal B Vacine Aged Out No lo nger eligible based on patient's age to complete this topic RSV Immunization Patients Under 20 months Aged Out No longer eligible based on patient's age to complete this topic Varicella Vaccines Aged Out No longer eligible based on patient's age to complete this topic Procedures Procedure Name Priority Date/Time Associated Diagnosis Comments CT LUNG SCREENING Routine 01/27/2024 11: 35 AM EST Personal history of nicotine dependence SCREENING MAMMOGRAPHY BI 2-VIEW BREAST INC CAD Routine 07/25/2023 3:07 PM EDT Encounter for immunization Age-related osteoporosis without current pathological fracture Chronic kidney disease, stage 3 unspecified (CMS/HCC) Morbid (severe) obesity due to excess calories (CMS/HCC) Obstructive sleep apnea (adult) (pediatric) Fatty (change of) liver, not elsewhere classified Anxiety disorder, unspecified Chronic obstructive pulmonary disease, unspecified (CMS/HCC) Essential (primary) hypertension Gastro-esophageal reflux disease without esophagitis Hypothyroidism, unspecified DXA BONE DENSITY STUDY 1+ SITS AXIAL SKEL Routine 07/24/2021 9:20 AM EDT Abnormal result of other cardiovascular function study Chronic kidney disease, stage 3 unspecified (CMS/HCC) Morbid (severe) obesity due to excess calories (CMS/HCC) Obstructive sleep apnea (adult) (pediatric) Fatty (change of) liver, not elsewhere classified Anxiety disorder, unspecified Chronic obstructive pulmonary disease, unspecified (CMS/HCC) Essential (primary) hypertension Irritable bowel syndrome without diarrhea Gastro-esophageal reflux disease without esophagitis Hypothyroidism, unspecified Other specified disorders of bone density and structure, unspecified site Asymptomatic menopausal state from Last 3 Months or Most Recently Relevant to Health Maintenance Results * CT Lung Screening (01/27/2024 11:35 AM EST) Anatomical Region Laterality Modality Chest Computed Tomogra phy 01/29/2024 8:19 AM EST Impressions 01/29/2024 8:38 AM EST Impression: No suspicious developing pulmonary nodule. Lung-RADS Category: ??Lung-RADS 2: Nodule(s) with benign appearance or behavior. Continue annual screening with Low Dose Chest CT in 12 months. Recommendations: Continue annual screening with low-dose noncontrast chest CT in 12 months. -------- FINAL REPORT -------- Dictated By: Hoda Newberry Dictated Date: 01/29/2024 08:19 ET Assigned Physician: Hoda Newberry Reviewed and Electronically Signed By: Hoda Newberry Signed Date: 01/29/2024 08:38 ET Workstation ID: [id number] Transcribed By: Self Edit Transcribed Date: 01/29/2024 08:19 ET Narrative 01/29/2024 8:38 AM EST History: ??73 year-old 45 pack-year former smoker, asymptomatic, for lung cancer screening. Quit smoking in 2010. Comparison: 12/25/22 (conventional thoracic CT) Technique: Helical volumetric imaging of the thorax was performed, using low- dose technique, without IV contrast. DLP: 157.66 mGy/cm ??CTDIvol: 4.89 mGy [employer] Iterative reconstruction technique Findings: Lungs and Airways: The trachea and central bronchial tree remain patent. Diffuse bronchial wall thickening is without significant change, consistent with bronchitis in this setting. Centrilobular emphysema is again noted. Mild paraseptal emphysema is also present. There is subpleural reticulation favoring the lower lobes, unchanged, consistent with interstitial fibrosis. Peripheral tree-in-bud opacity in the lateral segment of the right middle lobe persists, with some of the tiny peripheral nodules have improved in the interim (image 122 series 3, for example). Minimal peripheral tree-in-bud opacity is seen in the left upper lobe (image 83), without significant change. There is mild peripheral mucous plugging at the base of both lower lobes. Solid, noncalcified pulmonary nodules include scattered sub-4 mm nodules, favoring the upper lobes, without significant change. No suspicious developing pulmonary nodule is seen. Pleura: No pleural or pericardial effusions are seen. Base of neck, mediastinum and heart: The heart remains normal in size. Moderate coronary artery calcification is noted. The thoracic aorta is normal in caliber. No developing thoracic lymphadenopathy is seen. Soft tissues: The overlying soft tissues are unremarkable. Abdomen: This study was performed without contrast and with lower than standard dose. These factors reduce the sensitivity for detection of small lesions in the upper abdomen. Bilateral renal cysts are partially imaged. Thoracic disc degenerative changes are again seen. A 7 mm sclerotic lesion within a lower thoracic vertebral body is without the skin change, possibly a bone island. us Netta Hernandez MD IMG CT PROCEDURES Final Result * SCREENING MAMMOGRAPHY BI 2-VIEW BREAST INC CAD (07/25/2023 3:07 PM EDT) Anatomical Region Laterality Modality Radiographic Verito ging 01/01/2023 8:37 AM EDT Narrative 07/26/2023 11:28 AM EDT This is a summary report. The complete report is available in the patient's medical record. If you cannot access the medical record, please contact the sending organization for a detailed fax or copy. Study: SCREENING MAMMOGRAPHY BI 2-VIEW BREAST INC CAD Technique: Bilateral full-field digital screening mammography is obtained and read in conjunction with computer aided detection. ??Tomosynthesis as well as 2D C-View imaging were obtained. Comparison: Comparison made to multiple prior, most recent July 24, 2021, and most remote June 11, 2016. Breast composition: There are scattered areas of fibroglandular density. Bilateral breasts: No significant masses, suspicious calcifications or other abnormalities are seen in either breast. IMPRESSION: Impression: Bilateral breasts: Negative, no specific mammographic evidence of malignancy. ??Normal interval follow-up is recommended in 12 months. BI-RADS: Category 1: Negative Procedure Note Cole Novak MD - 10/28/2023 This is a summary report. The complete report is available in thepatient's medical record. If you cannot access the medical record, pleasecontact the sending organization for a detailed fax or copy. Study: SCREENING MAMMOGRAPHY BI 2-VIEW BREAST INC CAD Technique: Bilateral full-field digital screening mammography is obtainedand read in conjunction with computer aided detection. Tomosynthesis aswell as 2D C-View imaging were obtained. Comparison: Comparison made to multiple prior, most recent July 24, 2021,and most remote June 11, 2016. Breast composition: There are scattered areas of fibroglandular density. Bilateral breasts: No significant masses, suspicious calcifications orother abnormalities are seen in either breast. IMPRESSION: Impression: Bilateral breasts: Negative, no specific mammographic evidence ofmalignancy. Normal interval follow-up is recommended in 12 months. BI-RADS: Category 1: Negative Joey FLORES IMG XR PROCEDURES Final R esult * DXA BONE DENSITY STUDY 1+ SITS AXIAL SKEL (07/24/2021 9:20 AM EDT) Anatomical Region Laterality Modality Bone Densitometr y 09/30/2020 9:52 AM EDT Narrative 07/24/2021 8:02 PM EDT BONE DENSITY SCAN (DEXA): FINDINGS: Lumbar Spine T-score is -1.2. ?? (SD relative to 20-29 y/o adult) Z-score is 0.8. ??(SD relative to age matched peers) This is considered osteopenia by WHO criteria. Left Hip T-score is -2.8. Z-score is -1.0. This is considered osteoporosis by WHO criteria. Comparison exam(s): 07/29/2018 and 04/09/2016. Lumbar spine: 3.8% loss of bone mineral density compared with 2019, statistically significant at the 95% confidence level. ??No statistically significant change compared with 2017. Left hip: 3.6% loss of bone mineral density compared with 2019 and 3.3% loss compared with 2017, both statistically significant at the 95% confidence level. IMPRESSION: IMPRESSION: ?? Osteoporosis by WHO criteria. The [facility] Department of Internal Medicine recommends using National Osteoporosis Foundation (NOF) guidelines in treatment decisions related to osteoporosis. NOF guidelines suggest considering treatment for postmenopausal women and men aged 50 or older presenting with the following: History of hip or vertebral fracture. T-score = -2.5 (DXA) at the femoral neck, total hip, or spine, after appropriate evaluation to exclude secondary causes. Low bone mass (T-score between -1.0 and -2.5 at the femoral neck or spine) AND a 10-year probability of a hip fracture = 3% OR a 10-year probability of a major osteoporosis-related fracture = 20% based on the [place]-adapted WHO algorithm Please note that all treatment decisions require clinical judgment and consideration of individual patient factors, including patient preferences, co-morbidities, previous drug use, risk factors not captured in the FRAX model (e.g., frailty, falls, vitamin D deficiency, increased bone turnover, interval significant decline in bone density) and possible under- or over-estimation of fracture risk by FRAX. Optional alternative screening schedule based on kamar Pettit., [facility] March 29, 2011 for patients with osteopenia (based on hip BMD T-score) is as follows: * ??advanced osteopenia (T scores -2.00 to -2.49), BMD testing every year * ??moderate osteopenia (T scores -1.50 to -1.99), BMD testing every 5 years mild osteopenia or normal BMD (T scores -1.50 and higher), BMD testing every 15 years Procedure Note Yael Lemos MD - 02/27/2022 BONE DENSITY SCAN (DEXA): FINDINGS: Lumbar Spine T-score is -1.2. (SD relative to 20-29 y/o adult) Z-score is 0.8. (SD relative to age matched peers) This is considered osteopenia by WHO criteria. Left Hip T-score is -2.8. Z-score is -1.0. This is considered osteoporosis by WHO criteria. Comparison exam(s): 07/29/2018 and 04/09/2016. Lumbar spine: 3.8% loss of bone mineral density compared with 2019,statistically significant at the 95% confidence level. No statistically significant change comparedwith 2017. Left hip: 3.6% loss of bone mineral density compared with 2019 and 3.3%loss compared with 2017, both statistically significant at the 95% confidence level. IMPRESSION: IMPRESSION: Osteoporosis by WHO criteria. The [facility] Department of Internal Medicine recommendsusing National Osteoporosis Foundation (NOF) guidelines in treatment decisions related toosteoporosis. NOF guidelines suggest considering treatment for postmenopausal women and menaged 50 or older presenting with the following: History of hip or vertebral fracture. T-score = -2.5 (DXA) at the femoral neck, total hip, or spine, afterappropriate evaluation to exclude secondary causes. Low bone mass (T-score between -1.0 and -2.5 at the femoral neck or spine)AND a 10-year probability of a hip fracture = 3% OR a 10-year probability of a majorosteoporosis-related fracture = 20% based on the [place]-adapted WHO algorithm Please note that all treatment decisions require clinical judgment andconsideration of individual patient factors, including patient preferences, co- morbidities,previous drug use, risk factors not captured in the FRAX model (e.g., frailty, falls, vitaminD deficiency, increased bone turnover, interval significant decline in bone density) andpossible under- or over-estimation of fracture risk by FRAX. Optional alternative screening schedule based on kamar Pettit., [facility] for patients with osteopenia (based on hip BMD T-score) is as follows: * advanced osteopenia (T scores -2.00 to -2.49), BMD testing every year * moderate osteopenia (T scores -1.50 to -1.99), BMD testing every 5years mild osteopenia or normal BMD (T scores -1.50 and higher), BMD testingevery 15 years Joey FLORES Cady DXA PROCEDURES Final Result from Last 3 Months or Most Recently Relevant to Health Maintenance Insurance [employer] MED[employer]ARE Care Teams Chief Marketing Officer Relationship Specialty Start Date End Date Name, MD Escobar [address] [place] [id number] PCP - General Internal Medicine 01/27/24
[2024-04-21 14:11] LABS: MANUAL DIFF FLAG NO
[2024-04-21 14:19] LABS: Basophils Percent Auto 0.7 % (0-2); Eosinophils Absolute Auto 0.2 X10*3/uL (0.0-0.4); Eosinophils Percent Auto 2.7 % (0-4); Hematocrit 45.1 % (37.0-47.0); Hemoglobin 14.4 g/dl (12.0-16.0); Imm Gran Abs Auto 0.02 X10*3/uL (0.00-0.03); Imm Gran Pct Auto 0.3 % (0.0-0.4); Lymphocytes Absolute Auto 1.5 X10*3/uL (1.2-4.9); Mean Corpuscular HGB Conc 31.9 g/dl (31.0-35.0); Mean Corpuscular Hemoglobin 31.6 pg (27.0-33.0); Mean Corpuscular Volume 98.9 fL (80.0-98.0); Monocytes Absolute Auto 0.4 X10*3/uL (0.1-1.2); Monocytes Percent Auto 7.3 % (2-11); Neutrophils Absolute Auto 3.7 x10*3/uL (2.0-8.3); Platelet Count 154 X10*3/uL (160-400); Red Blood Count 4.56 X10*6/uL (4.20-5.50); Red Cell Distribution Width 13.2 % (11.0-16.0); White Blood Count 5.9 X10*3/uL (4.8-10.8)
[2024-04-21 14:32] LABS: Estimated Average Glucose 103 mg/dL; Hemoglobin A1C 124.8551 umol/L; Hemoglobin A1c % 5.2 % (<6.0); Total Hemoglobin (HGBA1C) 3742.9746 umol/L
[2024-04-21 15:35] LABS: Alanine Aminotransferase 33 U/L (0-31); Albumin Level 4.3 g/dL (3.5-5.0); Anion Gap 12 (12-20); Aspartate Amino Transferase 28 U/L (5-31); Bilirubin Total 0.4 mg/dL (0.0-1.0); Blood Urea Nitrogen 20 mg/dL (9-16); Calcium 9.3 mg/dL (8.4-10.2); Carbon Dioxide 26 mmol/L (22-29); Chloride 108 mmol/L (96-108); Cholesterol 207 mg/dL (<200); Estimated Glomerular Filt Rate 58; Glucose Random 92 mg/dL (60-115); HDL Cholesterol 69 mg/dL (>40); LDL Cholesterol Calculated 116 mg/dL (<100); Potassium 4.3 mmol/L (3.3-5.1); Sodium 142 mmol/L (135-145); Total Protein 7.5 g/dL (6.5-8.0); Triglycerides 114 mg/dL (<150)
[2024-04-21 15:52] LABS: TSH reflex Free T4 0.63 uIU/mL (0.32-4.0); Vitamin D 25-OH Total 24.8 ng/mL (>30)
[2024-04-21 17:11] LABS: Alkaline Phosphatase 60 U/L (39-117)
== END 2024-04-21 08:48 | disposition home or self-care (01) ==
LOC: HO.CHCLDS 08:47
PROVIDERS: Visit Provider Internal Medicine Geriatric Medicine
DX: I10 Essential (primary) hypertension (principal); M81.0 Age-related osteoporosis without current pathological fracture; Z13.220 Encounter for screening for lipoid disorders; Z13.1 Encounter for screening for diabetes mellitus; E03.9 Hypothyroidism, unspecified
CPT/HCPCS: 36415; 80053; 80061; 82306; 83036; 84443; 85025

== ENCOUNTER 2024-05-04 10:58 | Outpatient (REF) | payer MEDICARE, SELFPAY ==
[2024-05-04 11:22] VITALS: BP 128/78; PULSE 80; RESP 18; TEMP 36.1; O2SAT 98; BMI 36.2
--- OUTSIDE RECORDS SUMMARY | 2024-05-04 12:37 | XMS_ITS | Encounter Summary ---
Author Organization [employer] Address [address] [place] [address] Care Team Providers Care [facility] Name Role Phone Unavailable Primary Care Provider [...]
--- OUTSIDE RECORDS SUMMARY | 2024-05-04 12:37 | XMS_ITS | Encounter Summary ---
Author Organization [employer] Address [address] [facility] [address] [place] [address] Care Team Providers Care Agile Tester Name Role Phone Escobar Frazier MD Primary Care Provider [phone] Reason for Referral * Imaging (Routine) - Authorized Specialty Diagnoses / Procedures Referred By Contac t Referred To Contact Radiology Diagnoses Osteoporosis without current pathological fracture, unspecified osteoporosis type Procedures BD DEXA Axial NameEscobar MD [address] [place] [phone] Phone: tel: fax: [address] Phone: tel: fax: Referral ID Status Reason Start Date Expiration Date V isits Requested Visits Authorized [id number] Authorized 04/09/2024 04/09/2025 1 1 Reason for Visit * Reason Comments New patient visit Encounter Details Date Type Department Care Team (Late st Contact Info) Description 04/09/2024 10:45 AM EST Office Visit [facility] [address] [place], [place] [phone] Escobar Frazier MD [address] [place] [address] [phone] Hypertension, unspecified type (Primary Dx); Hypothyroidism, unspecified [...] in this encounter Progress Notes * Escobar Frazier MD - 04/09/2024 10:45 AM EST Subjective Patient ID: Marianne Hodges is a 73 y.o. female who presents for New patient visit. Patient comes for the first time. She is transferring from [facility]. She has a past medical history of hypertension, hypothyroidism, osteoporosis, overactive bladder. She is a former smoker. The patient is up-to-date with low radiation CT scans and mammograms that she is doing at [facility]. She tells me she is up-to-date with her colonoscopy. Current medication regimen includes lisinopril and Synthroid. She asked me to refill medication she was using for overactive bladder. The patient is a retired hairdresser. She lives with her . The patient has custody of her [facility] that has severe autism. The patient exercises [...] Type Priority Associated Diagnoses Orde r Schedule BD DEXA Axial Imaging Routine Osteoporosis without current pathological fracture, unspecified osteoporosis type Expected: 04/09/2024, Expires: 04/09/2025 documented as of this encounter Procedures Procedure Name Priority Date/Time Associated Diagnosis Comments VITAMIN D,25-OH,TOTAL,IA Routine 04/21/2024 8:48 AM EST Osteoporosis without current pathological fracture, unspecified osteoporosis type TSH W/REFLEX TO FT4 Routine 04/21/2024 8 :48 AM EST Hypothyroidism, unspecified type CBC WITH AUTO DIFFERENTIAL Routine 04/21/2024 8:48 AM EST Hypertension, unspecified type HEMOGLOBIN A1C Routine 04/21/2024 8:48 AM EST Screening for diabetes mellitus LIPID PANEL, STANDARD Routine 04/21/2024 8:48 AM EST Screening for cholesterol level COMPREHENSIVE METABOLIC PANEL Routine 04/21/2024 8:48 AM EST Hypertension, unspecified type Osteoporosis without current pathological fracture, unspecified osteoporosis type documented in this encounter Results * TSH W/Reflex to FT4 (04/21/2024 8:48 AM EST) TSH reflex Free T4 0.63 0.32 - 4.0 uIU/mL [facility] Blood Venous blood specimen / Unknown 04/21/2024 8:48 AM EST 04/21/2024 2:01 PM EST us Escobar Frazier MD LAB BLOOD ORDERABLES Final Resul t [facility] [address] [place] [phone] * (ABNORMAL) Vitamin D, 25-Hydroxy, Total, Immunoassay (04/21/2024 8:48 AM EST) Vitamin D 25-OH Total 24.8(L) >30 ng/mL [facility] Comment:Health Based Referen ce Values*< 20 ng/mL Oznxgdphu26-26 ng/mL Insufficient> 30 ng/mL Sufficient*Hank MALDONADO. N Engl J Med. 2007;357:266-280Care must be taken in interpreting Vitamin D results fromdifferent laboratories and methodologies. Published datademonstrated that results from patients undergoinghemodialysis may show a negative bias when tested withvarious automated 25-OH vitamin D assays when compared toLC-MS/MS.When testing samples from patients whose predominant form ofVitamin D is Vitamin D2, such as patients receiving VitaminD2 supplementation, results that are subtherapeutic shouldbe confirmed with another method such as LC-MS/MS. Blood Venous blood specimen / Unknown 04/21/2024 8:48 AM EST 04/21/2024 2:01 PM EST us Escobar Frazier MD LAB BLOOD ORDERABLES Final Resul t Performing Organization Address [facility] Co de Phone Number [facility] [address] [place] [phone] * Hemoglobin A1c (04/21/2024 8:48 AM EST) Hemoglobin A1c 5.2 <6.0 % [facility] Comment:Hemoglobin A1C Refer ence Range Adults: 4.8 - 6.0 % Non diabetic: < 6.0 % Goal: < 7.0 %Additional Action Suggested: > 8.0 %Note: Hemoglobin A1c results are invalid for patients with abnormal amounts of HbF. Blood transfusions may impact the HbA1c concentration in the patient sample. Estimated Average Glucose 103 mg/dL [facility] Comment:eAG = Estimated ave rage glucose which is %A1C expressed asaverage glucose, using the formula of the W8X-NybyzpwLxdcbhj Glucose study (ADAG), Diabetes Care, Vol.31,#8,Oct. 2007 Blood Venous blood specimen / Unknown 04/21/2024 8:48 AM EST 04/21/2024 2:01 PM EST us Escobar Frazier MD LAB BLOOD ORDERABLES Final Resul t Performing Organization Address [facility] Co de Phone Number [facility] [address] [place] [phone] * (ABNORMAL) Lipid Panel, Standard (04/21/2024 8:48 AM EST) Triglycerides 114 <150 mg/dL [facility] Comment:Desirable Triglyceri de: less than 150 mg/dLBorderline High Triglyceride 150-199 mg/dLHigh Triglyceride: 200-499 mg/dLVery High Triglyceride: greater than or equal to 5OO mg/dL Cholesterol 207(H) <200 mg/dL [facility] Comment:Desirable Cholestero l: less than 200 mg/dLBorderline High Cholesterol: 200-239 mg/dLHigh Cholesterol: greater than 239 mg/dL LDL Cholesterol Calculated 116(H) <100 mg/dL [facility] Comment:Desirable LDL: less than 100 mg/dLNear Optimal/Above Optimal LDL: 110- 129 mg/dLBorderline High LDL: 130-159 mg/dLHigh LDL: 160-189 mg/dLVery High LDL: greater than or equal to 190 mg/dL HDL Cholesterol 69 >40 mg/dL [facility] Comment:Desirable HDL: great er than 40 mg/dL Note: This HDL assay may give artificially low results in patients with liver disease. Blood Venous blood specimen / Unknown 04/21/2024 8:48 AM EST 04/21/2024 2:01 PM EST us Escobar Name LAB BLOOD ORDERABLES Final Resul t [facility] [address] [place] [phone] * (ABNORMAL) Comprehensive Metabolic Panel (04/21/2024 8:48 AM EST) Sodium 142 135 - 145 mmol/L [facility] Potassium 4.3 3.3 - 5.1 mmol/L [facility] Chloride 108 96 - 108 mmol/L [facility] Carbon Dioxide 26 22 - 29 mmol/L [facility] Anion Gap 12 12 - 20 [facility] Urea Nitrogen (BUN) 20(H) 9 - 16 mg/dL [facility] Creatinine, Serum 0.95 0.5 - 1.4 mg/dL [facility] Estimated Glomerular Filt Rate 58 [facility] Comment:Chronic Kidney Disea se: Estimated GFR < 60 mL/min/1.98l2Gemenh Kidney Disease: Estimated GFR < 15 mL/min/1.73m2 Glucose 92 60 - 115 mg/dL [facility] Calcium 9.3 8.4 - 10.2 mg/dL [facility] Bilirubin, Total 0.4 0.0 - 1.0 mg/dL [facility] Aspartate Amino Transferase 28 5 - 31 U/L [facility] Alanine Aminotransferase 33(H) 0 - 31 U/L [facility] Total Protein 7.5 6.5 - 8.0 g/dL [facility] Albumin Level 4.3 3.5 - 5.0 g/dL [facility] Alkaline Phosphatase 60 39 - 117 U/L [facility] Blood Venous blood specimen / Unknown 04/21/2024 8:48 AM EST 04/21/2024 2:01 PM EST us Escobar Name LAB BLOOD ORDERABLES Final Resul t [facility] [address] [place] [phone] * (ABNORMAL) CBC auto differential (04/21/2024 8:48 AM EST) White Blood Count 5.9 4.8 - 10.8 X10*3/uL [facility] Red Blood Count 4.56 4.20 - 5.50 X10*6/uL [facility] Hemoglobin 14.4 12.0 - 16.0 g/dl [facility] Hematocrit 45.1 37.0 - 47.0 % [facility] Mean Corpuscular Volume 98.9(H) 80.0 - 98.0 fL [facility] Mean Corpuscular Hemoglobin 31.6 27.0 - 33.0 pg [facility] Mean Corpuscular HGB Conc 31.9 31.0 - 35.0 g/dl [facility] Red Cell Distribution Width 13.2 11.0 - 16.0 % [facility] Platelet Count 154(L) 160 - 400 X10*3/uL [facility] Mean Platelet Volume 11.0 9.4 - 12.3 fL [facility] Neutrophils Percent Auto 63.0 45 - 73 % [facility] Imm Gran Pct Auto 0.3 0.0 - 0.4 % [facility] Lymphocytes Percent Auto 26.0 20 - 40 % [facility] Monocytes Percent Auto 7.3 2 - 11 % [facility] Eosinophils Percent Auto 2.7 0 - 4 % [facility] Basophils Percent Auto 0.7 0 - 2 % [facility] NRBC Pct Auto 0.0 0.0 - 0.2 /100WBC [facility] Neutrophils Absolute Auto 3.7 2.0 - 8.3 x10*3/uL [facility] Imm Gran Abs Auto 0.02 0.00 - 0.03 X10*3/uL [facility] Lymphocytes Absolute Auto 1.5 1.2 - 4.9 X10*3/uL [facility] Monocytes Absolute Auto 0.4 0.1 - 1.2 X10*3/uL [facility] Eosinophils Absolute Auto 0.2 0.0 - 0.4 X10*3/uL [facility] Basophils Absolute Auto 0.0 0.0 - 0.2 X10*3/uL [facility] NRBC Abs Auto 0.000 0.0 - 0.012 X10*3/uL [facility] Blood Venous blood specimen / Unknown 04/21/2024 8:48 AM EST 04/21/2024 2:01 PM EST us Escobar Frazier MD LAB BLOOD ORDERABLES Final Resul t [facility] [address] [place] [phone] documented in this encounter Visit Diagnoses Diagnosis Hypertension, unspecified [...] documented as of this encounter Care Teams Agile Tester Relationship Specialty Start Date End Date Name, MD Escobar [address] [place] [address] PCP - General Internal Medicine 04/09/24 documented as of this encounter
--- OUTSIDE RECORDS SUMMARY | 2024-05-04 12:37 | XMS_ITS | Clinical Summary ---
Author Organization [facility] Address [address] [place] [phone] Phone Care Team Providers Care Steam Fitter Name Role Phone Name, Escobar VILLATORO Primary Care Provider [phone] Medications lisinopriL (PRINIVIL,ZESTRI L) 10 mg tablet TAKE 1 TABLET BY MOUTH DAILY 100 tablet 2 04/23/2024 Active Surgical History Surgery Date Site/Laterality Comments BUNIONECTOMY in the s PROCEDURE: SD CORRJ HLX VLGS BNCTY SESMDC W/DOUBLE OSTEOTOMY [...] Info) Description 07/28/2024 9:00 AM EDT Appointment [facility] Bone Density [address] [place] [phone] Health Maintenance Due Date Last [...] Additional history exists Breast Cancer Screening 07/24/2025 07/25/19, 07/25/2023, 07/24/2021, Additional history exists Cholesterol Screening [...] Hoda Newberry Reviewed and Electronically Signed By: YaaHoda treadwell Signed Date: 01/29/2024 08:38 ET Workstation ID: [id number] Transcribed By: Self Edit Transcribed Date: 01/29/2024 08:19 ET Narrative 01/29/2024 8:38 AM EST History: ??73 year-old 45 pack-year former smoker, asymptomatic, for lung cancer screening. Quit smoking in 2010. Comparison: 12/25/22 (conventional thoracic CT) Technique: Helical volumetric imaging of the thorax was performed, using low- dose technique, without IV contrast. DLP: 157.66 mGy/cm ??CTDIvol: 4.89 mGy Trendyol Iterative reconstruction technique Findings: Lungs and Airways: [...] IMPRESSION: ?? Osteoporosis by WHO criteria. The [facility] Department of Internal Medicine recommends using National [...] alternative screening schedule based on kamar Pettit., [facility] March 29, 2011 for patients with osteopenia [...] IMPRESSION: IMPRESSION: Osteoporosis by WHO criteria. The [facility] Department of Internal Medicine recommendsusing National Osteoporosis [...] FRAX. Optional alternative screening schedule based on nan Pettit al., NEJMJanuary 2011 for patients with osteopenia (based on hip BMD T-score) is as follows: * advanced osteopenia (T scores -2.00 to -2.49), BMD testing every year * moderate osteopenia (T scores -1.50 to -1.99), BMD testing every 5years mild osteopenia or normal BMD (T scores -1.50 and higher), BMD testingevery 15 years Joey FLORES IMG DXA PROCEDURES Final Result from Last 3 Months or Most Recently Relevant to Health Maintenance Insurance [employer] MEDICARE Care Teams Steam Fitter Relationship Specialty Start Date End Date Name, MD Escobar [address] [place] [phone] PCP - General Internal Medicine 01/27/24
--- OUTSIDE RECORDS SUMMARY | 2024-05-04 12:37 | XMS_ITS | Encounter Summary ---
Author Organization [employer] Address [address] [place] [address] Care Team Providers Care Supervisor Mill Name Role Phone Name, Escobar VILLATORO Primary Care Provider [phone] Encounter Details Date Type Department Care Team [...] documented as of this encounter Care Teams Supervisor Mill Relationship Specialty Start Date End Date Name, MD Escobar [address] [place] [address] PCP - General Internal Medicine 04/09/24 documented as of this encounter
--- OUTSIDE RECORDS SUMMARY | 2024-05-04 12:37 | XMS_ITS | Clinical Summary ---
Author Organization [employer] Address [address] [facility] [address] [place] [address] Care Team Providers Care Joinery Machinist Name Role Phone Name, Escobar VILLATORO Primary Care Provider Allergies No known active allergies Medications levothyroxine [...] Description 04/09/2024 10:45 AM EST Office Visit [facility] [address] [place], [place] [phone] Name, MD Escobar Hypertension, unspecified type (Primary Dx); Hypothyroidism, unspecified type; Osteoporosis without current pathological fracture, unspecified osteoporosis type; Screening for cholesterol level; Screening for diabetes mellitus; Former smoker; Overactive bladder 04/09/2024 Travel 04/08/2024 Travel 04/01/2024 Patient Outreach [facility] [address] [place] [address] Name, MD Escobar Pre-visit Planning ([facility] unable to reach [facility] ) from Last 3 Months Immunizations Name Administration Dates Next Due Influenza High-dose Quadriva lent Preservative Free 11/24/2021,12/24/2019 Influenza Injectable Quadriv alant Preservative Free IIV4 MDCK 12/18/2016 Influenza Quadrivalent Adjuvanted 12/23/2020 Influenza, High Dose Seasona l, Preservative Free 01/01/2023,11/24/2017 Influenza, IIV3, injectable 01/13/2016,0 11/19/2014,12/14/2013,11/25,12/21/2011,12/15/2010,01/23/2010 ,12/04/2008,12/22/2007,01/02/2007 Influenza, trivalent, adjuvanted 12/14/2023,11/10 Novel [id number], preservative-free 03/23/2009 Pneumococcal Conjugate PCV 13 02/04/2018 [...] FIT DNA/Cologuard 1952 FIT 1952 FOBT 1952 Sigmoidoscopy 1952 Alcohol/Substance Use Screening 1964 Hepatitis C Screening 1970 Mammogram 1992 COVID-19 Vaccine ( season) 2023 12/14/2021, 07/06/2021, 02/03/2021, Additional history exists Depression Screening 04/09/2025 04/09/2024, 04/09/19 SDOH Screening 04/09/2025 04/09/2024 Tobacco Screening 04/09/2025 04/09/2024 RSV Patients and Patients Aged 60 years or older (1 - 1-dose 75+ series) 10/28/2027 Lipid Panel 04/21/2029 04/21/2024 DTaP/Tdap/Td Vaccines (3 - Td or Tdap) [...] Procedure Name Priority Date/Time Associated Diagnosis Comments TSH W/REFLEX TO FT4 Routine 04/21/2024 8 :48 AM EST Hypothyroidism, unspecified type VITAMIN D,25-OH,TOTAL,IA Routine 04/21/2024 8:48 AM EST Osteoporosis without current pathological fracture, unspecified osteoporosis type HEMOGLOBIN A1C Routine 04/21/2024 8:48 AM EST Screening for diabetes mellitus LIPID PANEL, STANDARD Routine 04/21/2024 8:48 AM EST Screening for cholesterol level COMPREHENSIVE METABOLIC PANEL Routine 04/21/2024 8:48 AM EST Hypertension, unspecified type Osteoporosis without current pathological fracture, unspecified osteoporosis type CBC WITH AUTO DIFFERENTIAL Routine 04/21/2024 8:48 AM EST Hypertension, unspecified type from Last 3 Months Results * (ABNORMAL) Vitamin D, 25-Hydroxy, Total, Immunoassay (04/21/2024 8:48 AM EST) Vitamin D 25-OH Total 24.8(L) >30 ng/mL [facility] Comment:Health Based Referen ce Values*< 20 ng/mL Wucjynmyr35-64 ng/mL Insufficient> 30 ng/mL Sufficient*Hank MALDONADO. N [...] Name LAB BLOOD ORDERABLES Final Resul t [facility] [address] [place] [phone] * TSH W/Reflex to FT4 (04/21/2024 8:48 AM EST) TSH reflex Free T4 0.63 0.32 - 4.0 uIU/mL [facility] Blood Venous blood specimen / Unknown 04/21/2024 8:48 AM EST 04/21/2024 2:01 PM EST us Escobar Name LAB BLOOD ORDERABLES Final Resul t [facility] [address] [place] [phone] * (ABNORMAL) CBC auto differential (04/21/2024 8:48 AM EST) White Blood Count 5.9 4.8 - 10.8 X10*3/uL [facility] Red Blood Count 4.56 4.20 - 5.50 X10*6/uL [facility] Hemoglobin 14.4 12.0 - 16.0 g/dl [facility] Hematocrit 45.1 37.0 - 47.0 % [facility] Mean Corpuscular Volume 98.9(H) 80.0 - 98.0 fL [facility] Mean Corpuscular Hemoglobin 31.6 27.0 - 33.0 pg [facility] Mean Corpuscular HGB Conc 31.9 31.0 - 35.0 g/dl [facility] Red Cell Distribution Width 13.2 11.0 - 16.0 % [facility] Platelet Count 154(L) 160 - 400 X10*3/uL [facility] Mean Platelet Volume 11.0 9.4 - 12.3 fL [facility] Neutrophils Percent Auto 63.0 45 - 73 % [facility] Imm Gran Pct Auto 0.3 0.0 - 0.4 % [facility] Lymphocytes Percent Auto 26.0 20 - 40 % [facility] Monocytes Percent Auto 7.3 2 - 11 % [facility] Eosinophils Percent Auto 2.7 0 - 4 % [facility] Basophils Percent Auto 0.7 0 - 2 % [facility] NRBC Pct Auto 0.0 0.0 - 0.2 /100WBC [facility] Neutrophils Absolute Auto 3.7 2.0 - 8.3 x10*3/uL [facility] Imm Gran Abs Auto 0.02 0.00 - 0.03 X10*3/uL [facility] Lymphocytes Absolute Auto 1.5 1.2 - 4.9 X10*3/uL [facility] Monocytes Absolute Auto 0.4 0.1 - 1.2 X10*3/uL [facility] Eosinophils Absolute Auto 0.2 0.0 - 0.4 X10*3/uL [facility] Basophils Absolute Auto 0.0 0.0 - 0.2 X10*3/uL [facility] NRBC Abs Auto 0.000 0.0 - 0.012 X10*3/uL [facility] Blood Venous blood specimen / Unknown 04/21/2024 8:48 AM EST 04/21/2024 2:01 PM EST us Escobar Frazier MD LAB BLOOD ORDERABLES Final Resul t [facility] [address] [place] [phone] * Hemoglobin A1c (04/21/2024 8:48 AM EST) Hemoglobin A1c 5.2 <6.0 % [facility] Comment:Hemoglobin A1C Refer ence Range Adults: 4.8 - 6.0 % Non diabetic: < 6.0 % Goal: < 7.0 %Additional Action Suggested: > 8.0 %Note: Hemoglobin A1c results are invalid for patients with abnormal amounts of HbF. Blood transfusions may impact the HbA1c concentration in the patient sample. Estimated Average Glucose 103 mg/dL [facility] Comment:eAG = Estimated ave rage glucose which is %A1C expressed asaverage glucose, using the formula of the C1L-SrberpoZsbaaxw Glucose study (ADAG), Diabetes Care, Vol.31,#8,Oct. 2007 Blood Venous blood specimen / Unknown 04/21/2024 8:48 AM EST 04/21/2024 2:01 PM EST us Escobar Frazier MD LAB BLOOD ORDERABLES Final Resul t Performing Organization Address [facility] de Phone Number [facility] [address] [place] [phone] * (ABNORMAL) Lipid Panel, Standard (04/21/2024 8:48 AM EST) Triglycerides 114 <150 mg/dL [facility] Comment:Desirable Triglyceri de: less than 150 mg/dLBorderline High Triglyceride 150-199 mg/dLHigh Triglyceride: 200-499 mg/dLVery High Triglyceride: greater than or equal to 5OO mg/dL Cholesterol 207(H) <200 mg/dL [facility] Comment:Desirable Cholestero l: less than 200 mg/dLBorderline High Cholesterol: 200-239 mg/dLHigh Cholesterol: greater than 239 mg/dL LDL Cholesterol Calculated 116(H) <100 mg/dL [facility] Comment:Desirable LDL: less than 100 mg/dLNear Optimal/Above Optimal LDL: 110- 129 mg/dLBorderline High LDL: 130-159 mg/dLHigh LDL: 160-189 mg/dLVery High LDL: greater than or equal to 190 mg/dL HDL Cholesterol 69 >40 mg/dL [facility] Comment:Desirable HDL: great er than 40 mg/dL Note: This HDL assay may give artificially low results in patients with liver disease. Blood Venous blood specimen / Unknown 04/21/2024 8:48 AM EST 04/21/2024 2:01 PM EST us Escobar Frazier MD LAB BLOOD ORDERABLES Final Resul t Performing Organization Address [facility] Co de Phone Number [facility] [address] [place] [phone] * (ABNORMAL) Comprehensive Metabolic Panel (04/21/2024 8:48 AM EST) Sodium 142 135 - 145 mmol/L [facility] Potassium 4.3 3.3 - 5.1 mmol/L [facility] Chloride 108 96 - 108 mmol/L [facility] Carbon Dioxide 26 22 - 29 mmol/L [facility] Anion Gap 12 12 - 20 [facility] Urea Nitrogen (BUN) 20(H) 9 - 16 mg/dL [facility] Creatinine, Serum 0.95 0.5 - 1.4 mg/dL [facility] Estimated Glomerular Filt Rate 58 [facility] Comment:Chronic Kidney Disea se: Estimated GFR < 60 mL/min/1.95p0Fufvhn Kidney Disease: Estimated GFR < 15 mL/min/1.73m2 Glucose 92 60 - 115 mg/dL [facility] Calcium 9.3 8.4 - 10.2 mg/dL [facility] Bilirubin, Total 0.4 0.0 - 1.0 mg/dL [facility] Aspartate Amino Transferase 28 5 - 31 U/L [facility] Alanine Aminotransferase 33(H) 0 - 31 U/L [facility] Total Protein 7.5 6.5 - 8.0 g/dL [facility] Albumin Level 4.3 3.5 - 5.0 g/dL [facility] Alkaline Phosphatase 60 39 - 117 U/L [facility] Blood Venous blood specimen / Unknown 04/21/2024 8:48 AM EST 04/21/2024 2:01 PM EST us Escobar Frazier MD LAB BLOOD ORDERABLES Final Resul t [facility] [address] [place] [phone] from Last 3 Months Insurance [facility] Care Teams Joinery Machinist Relationship Specialty Start Date End Date Name, MD Escobar [address] [place] [address] PCP - General Internal Medicine 04/09/24
== END 2024-05-04 10:59 | disposition home or self-care (01) ==
LOC: HO.MS 10:58
PROVIDERS: PCP Internal Medicine Geriatric Medicine; Visit Provider Ophthalmology
PROC: (CPT 67840; principal; 2024-05-04 14:00)
DX: D23.121 Other benign neoplasm of skin of left upper eyelid, including canthus (principal)
CPT/HCPCS: 67840; 88304; 88305; J2004

== ENCOUNTER 2024-08-12 10:36 | Outpatient (REF) | payer MEDICARE, SELFPAY ==
--- NOTE | ~2024-08-12 | XR_ITS ---
EXAMINATION: XR HIP, RIGHT CLINICAL INFORMATION: Right lateral hip pain on and off for the past year COMPARISON: None available. TECHNIQUE: Two views of the right hip. FINDINGS: Hip joint space is congruent and preserved. No osteophytes are evident. No chondrocalcinosis is noted. There is moderate sclerosis, narrowing, and irregularity of the pubic symphysis joint. Eggshell calcification lateral to the iliac crest is probably related to fat necrosis. XR/XR hip RT min 2V IMPRESSION: Unremarkable right hip. 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 Electronically signed by: Mingo Ibanez MD 08/12/2024 01:05 PM EDT
--- OUTSIDE RECORDS SUMMARY | 2024-08-12 11:22 | XMS_ITS | Encounter Summary ---
Author Organization [employer] Address [address] [facility] 7t [place] [address] Care Team Providers Care Tube Closing Machine Operator Name Role Phone Name, Escobar VILLATORO Primary Care Provider [phone] Encounter Details Date Type Department Care Team (Latest Contact Info) Description 08/12/2024 Travel Social History Tobacco Use Types Packs/Day Years Used Date Smoking Tobacco: Former Cigarettes Smokeless Tobacco: Never Alcohol Use Standard Drinks/Week [...] as of this encounter Plan of Treatment Upcoming Encounters Date Type Department Care Team (Late st Contact Info) Description 10/30/2024 9:00 AM EDT Telemedicine [facility] [address] [place] [phone] Name, MD Escobar [address] [place] [address] documented as of this encounter Visit Diagnoses Not on filedocumented in this encounter Additional Health Concerns Assessment Noted Time PHQ-9 Depression Total Score: 6 04/09/19 11:16 AM EST documented as of this encounter Care Teams Tube Closing Machine Operator Relationship Specialty Start Date End Date Name, MD Escobar [address] [place] [address] PCP - General Internal Medicine 04/09/24 documented as of this encounter
== END 2024-08-12 10:37 | disposition home or self-care (01) ==
LOC: HO.HHCX 10:36
PROVIDERS: Visit Provider Internal Medicine Geriatric Medicine
DX: M25.551 Pain in right hip (principal)
CPT/HCPCS: 73502

== ENCOUNTER → 2024-08-12 10:37 | Outpatient (BNV) | payer MEDICARE, SELFPAY | PROVIDERS: Visit Provider Radiology Diagnostic Radiology | DX: M16.11 Unilateral primary osteoarthritis, right hip (principal) | CPT/HCPCS: 73502 ==

== ENCOUNTER 2024-09-15 08:04 | Outpatient (REF) | payer MEDICARE, SELFPAY ==
--- NOTE | ~2024-09-15 | MM_ITS ---
EXAMINATION: MM SCREENING DIGITAL BREAST TOMOSYNTHESIS, BILATERAL CLINICAL INFORMATION: Screening. Asymptomatic. COMPARISON: Mammography: Comparison is made with available priors TECHNIQUE: Digital breast mammography with tomosynthesis is performed in both the craniocaudal and mediolateral oblique views along with computer-aided detection (CAD). FINDINGS: There are scattered areas of fibroglandular density (ACR BI-RADS breast composition Category b). There are no significant masses, abnormal calcifications, or other abnormalities. MM/MM tomosynthesis screening BI IMPRESSION: No mammographic evidence of malignancy. ASSESSMENT: BI-RADS BI-RADS 1 - Negative RECOMMENDATION: Routine annual mammography screening. 1 year F/U This examination should not preclude the clinical evaluation of a suspicious palpable abnormality. This patient's information was entered into a reminder system with a target due date for their next mammogram. Electronically signed by: Heaven Cunha DO 09/28/2024 08:43 AM EDT
--- NOTE | ~2024-09-15 | MM_ITS ---
EXAMINATION: DXA BONE DENSITY AXIAL HISTORY: osteoporosis TECHNIQUE: [employer] Dual energy absorptiometry (DEXA) of the lumbar spine, total left hip, and femoral neck was performed. COMPARISON: There are no prior studies for comparison. FINDINGS: The bone mineral density of the lumbar spine is 1.089 g/cm2, corresponding to a T-score of -0.8, and a Z-score of 0.1. This is indicative of normal bone mineral density. The bone mineral density of the left total hip is 0.856 g/cm2, corresponding to a T-score of -1.2, and a Z-score of -0.2. This is indicative of osteopenia. The bone mineral density of the left femoral neck is 0.724 g/cm2, corresponding to a T-score of -2.3, and a Z-score of -1.0. This is indicative of osteopenia. FRACTURE RISK: The FRAX index suggests a risk of major osteoporotic fracture of 12.8%, and of hip fracture 3.0%. MM/XR DEXA axial skeleton IMPRESSION: Based on bone mineral density, and according to World Health Organization (WHO) criteria, the diagnosis is consistent with osteopenia. Statistically, 68% of repeat scans fall within 1 SD (+/- 0.010 g/cm2 for AP spine L1-L4) and 1 SD (+/- 0.012 g/cm2 for femur total) FRAX is a trademark of the [employer]'s [place] [employer] Metabolic Bone Disease, a World Health Organization (WHO) Collaborating Center. Electronically signed by: Chad Coates MD 09/15/2024 08:39 AM EDT
--- OUTSIDE RECORDS SUMMARY | 2024-09-15 08:09 | XMS_ITS | Encounter Summary ---
Author Organization [employer] Address [address] [place] [address] 7 [place] [address] Care Team Providers Care Power Project Manager Name Role Phone Name, Escobar VILLAOTRO Primary Care Provider [phone] Reason for Visit * Reason Onset Date Comments Med Refill 06/08/2024 Encounter Details Date Type Department Care Team (Late st Contact Info) Description 06/08/2024 Refill [facility]EDS [address] [place], [place] [phone] Name, MD Escobar [address] [place] [address] Social History Tobacco Use Types Packs/Day Years [...] is your housing situation today? I have troyayaz ponce 04/09/[address] you [...] Info) Description 10/30/2024 9:00 AM EDT Telemedicine [facility] [address] [place] [address] Name, MD Escobar [address] [place] [address] documented as of this encounter Visit Diagnoses Not on filedocumented in this encounter Additional Health Concerns Assessment Noted Time PHQ-9 Depression Total Score: 6 04/09/19 25 11:16 AM EST documented as of this encounter Care Teams Power Project Manager Relationship Specialty Start Date End Date Name, MD Escobar [address] [place] [id number] PCP - General Internal Medicine 04/09/24 documented as of this encounter
--- OUTSIDE RECORDS SUMMARY | 2024-09-15 08:09 | XMS_ITS | Clinical Summary ---
Author Organization [facility] Address [address] [place] [phone] Phone Care Team Providers Care Biological Scientist Name Role Phone Name, Escobar VILLATORO Primary Care Provider Medications lisinopriL (PRINIVIL,ZESTRI L) 10 mg tablet TAKE 1 TABLET BY MOUTH DAILY 100 tablet 2 04/23/2024 Active Surgical History Surgery Date Site/Laterality Comments BUNIONECTOMY in the s PROCEDURE: [place] CORRJ HLX VLGS BNCTY SESMDC W/DOUBLE OSTEOTOMY [...] 07/09/2023 7:37 AM EDT Plan of Treatment Health Maintenance Due Date Last Done Comments Hepatitis A Vaccines (1 of 2 - Risk 2-dose series) 10[birth year]28/1969 Hepatitis B Vaccines (1 of 3 - Risk 3-dose series) 2012 RSV Immunization Adult Patients (1 - Risk 60-74 years 1-dose series) 2012 Colorectal Cancer Screening: Colonoscopy 02/17/2022 Depression Screening 02/17/2022 Falls Risk Assessment 02/17/2022 Hepatitis C Screening 02/17/2022 Medicare Annual Wellness Visit 02/17/2022 Social Influencers of Health Screening 02/17/2022 COVID-19 Vaccine ( season) 2023 12/14/2021, 07/06/2021, 02/03/2021, Additional history exists Hypertension/CHF/CAD Annual BMP Blood Test 07/10/2024 07/11/2023 Influenza Vaccine (#1) 2024 , 01/01/2023, 11/24/2021, Additional history exists Lung Cancer Screening (Low Dose CT) 01/26/2025 01/27/2024, 05/24/2022, 05/15/2021, Additional history exists Breast Cancer Screening 07/24/2025 07/25/19, 07/25/2023, 07/24/2021, Additional history exists Cholesterol Screening (Lipid Panel) 07/10/2028 07/11/2023 Osteoporosis Screening (Bone Density Screening) 07/25/2031 07/24/2021, 07/29/2018 DTaP,Tdap,and Td Vaccines (4 - Td or Tdap) 06/26/2032 06/26/2022, 01/14/2012, 10/02/2004 Pneumococcal Vaccine: 50+ Years Completed 12/24/2019, 02/04/2018, 03/08/2010 Zoster Vaccines Completed 08/03/2020, 03/12, 02/02/2013 HIB Vaccines Aged Out No longer eligi [...] age to complete this topic Meningococcal B Vaccine Aged Out No l onger eligible based on patient's age to complete [...] fracture Chronic kidney disease, stage 3 unspecified (CMS/HCC V24, CMS/HCC V28) Morbid (severe) obesity due to excess calories (CMS/HCC V24, CMS/HCC V28) Obstructive sleep apnea (adult) (pediatric) Fatty (change of) liver, not elsewhere classified Anxiety disorder, unspecified Chronic obstructive pulmonary disease, unspecified (CMS/HCC V24, CMS/HCC V28) Essential (primary) hypertension Gastro-esophageal reflux disease without esophagitis Hypothyroidism, unspecified DXA BONE DENSITY STUDY 1+ SITS AXIAL SKEL Routine 07/24/2021 9:20 AM EDT Abnormal result of other cardiovascular function study Chronic kidney disease, stage 3 unspecified (CMS/HCC V24, CMS/HCC V28) Morbid (severe) obesity due to excess calories (CMS/HCC V24, CMS/HCC V28) Obstructive sleep apnea (adult) (pediatric) Fatty (change of) liver, not elsewhere classified Anxiety disorder, unspecified Chronic obstructive pulmonary disease, unspecified (CMS/HCC V24, CMS/HCC V28) Essential (primary) hypertension Irritable bowel syndrome without [...] No suspicious developing pulmonary nodule. Lung-RADS Category: Lung-RADS 2: Nodule(s) with benign appearance or behavior. Continue annual screening with Low Dose Chest CT in 12 months. Recommendations: Continue annual screening with low-dose noncontrast chest CT in 12 months. -------- FINAL REPORT -------- Dictated By: Hoda Newberry Dictated Date: 01/29/2024 08:19 ET Assigned Physician: Hoda Newberry Reviewed and Electronically Signed By: Hoda Newberry Signed Date: 01/29/2024 08:38 ET Workstation ID: [id number] Transcribed By: Self Edit Transcribed Date: 01/29/2024 08:19 ET Narrative 01/29/2024 8:38 AM EST History: 73 year-old 45 pack-year former smoker, asymptomatic, for lung cancer screening. Quit smoking in 2010. Comparison: 12/25/22 (conventional thoracic CT) Technique: Helical volumetric imaging of the thorax was performed, using low- dose technique, without IV contrast. DLP: 157.66 mGy/cm CTDIvol: 4.89 mGy [employer] Iterative reconstruction technique Findings: Lungs and Airways: [...] in conjunction with computer aided detection. Tomosynthesis as well as 2D C-View imaging were obtained. Comparison: Comparison made to multiple prior, most recent July 24, 2021, and most remote June 11, 2016. Breast composition: There are scattered areas of fibroglandular density. Bilateral breasts: No significant masses, suspicious calcifications or other abnormalities are seen in either breast. IMPRESSION: Impression: Bilateral breasts: Negative, no specific mammographic evidence of malignancy. Normal interval follow-up is recommended in 12 [...] statistically significant at the 95% confidence level. No statistically significant change compared with 2017. Left hip: 3.6% loss of bone mineral density compared with 2019 and 3.3% loss compared with 2017, both statistically significant at the 95% confidence level. IMPRESSION: IMPRESSION: Osteoporosis by WHO criteria. The [facility] Department of Internal Medicine recommends using National [...] alternative screening schedule based on kamar Pettit., [facility] March 29, 2011 for [...] IMPRESSION: IMPRESSION: Osteoporosis by WHO criteria. The [facility] Department of Internal Medicine recommendsusing National Osteoporosis [...] alternative screening schedule based on kamar Pettit., NEJMJanuary 2011 for patients with osteopenia (based [...] Maintenance Insurance [employer] MEDICARE Care Teams Biological Scientist Relationship Specialty Start Date End Date Name, MD Escobar [address] [place] [id number] PCP - General Internal Medicine 01/27/24
== END 2024-09-15 08:05 | disposition home or self-care (01) ==
LOC: HO.MAMMO 08:04
PROVIDERS: PCP Internal Medicine Geriatric Medicine; Visit Provider Internal Medicine Geriatric Medicine
DX: Z12.31 Encounter for screening mammogram for malignant neoplasm of breast (principal); M81.0 Age-related osteoporosis without current pathological fracture
CPT/HCPCS: 77063; 77067; 77080

== ENCOUNTER → 2024-09-15 08:15 | Outpatient (BNV) | payer MEDICARE, SELFPAY | PROVIDERS: PCP Internal Medicine Geriatric Medicine; Visit Provider Radiology Diagnostic Radiology | DX: E28.39 Other primary ovarian failure (principal) | CPT/HCPCS: 77080 ==

== ENCOUNTER 2024-10-05 09:06 | Outpatient (REF) | payer MEDICARE, SELFPAY ==
--- NOTE | ~2024-10-05 | XR_ITS ---
EXAMINATION: XR PELVIS 1-2 VIEWS HISTORY: M25.559 - Pain in unspecified hip COMPARISON: There are no prior studies available for comparison. FINDINGS: A single AP view of the pelvis is submitted. Osseous mineralization is normal. There is no fracture or dislocation. There is degenerative change of the pubic symphysis. There is mild narrowing of the left hip. The right hip joint space is maintained. Sacroiliac joints are preserved. The soft tissues are unremarkable.. XR/XR pelvis 1-2V IMPRESSION: Degenerative change of the pubic symphysis. Mild narrowing of the left hip joint. Electronically signed by: Chad Coates MD 10/05/2024 02:04 PM EDT
--- OUTSIDE RECORDS SUMMARY | 2024-10-06 09:33 | XMS_ITS | Encounter Summary ---
Author Organization [employer] Address [address] [place] [address] [address] [place] [address] Care Team Providers Care Speaker Mounter Name Role Phone Name, Escobar VILLATORO Primary Care Provider [phone] Reason for Visit * Reason Onset Date Comments Med Refill 06/08/2024 Encounter Details Date Type Department Care Team (Late st Contact Info) Description 06/08/2024 Refill [facility] & PEDS [address] [place], [place] [phone] Name, MD Escobar [address] [place] [address] Social History Tobacco Use Types Packs/Day Years [...] Info) Description 10/30/2024 9:00 AM EDT Telemedicine [facility] MED[facility]INE [address] [place] [phone] Name, MD Escobar [address] [place] [address] documented as of this encounter Visit Diagnoses Not on filedocumented in this encounter Additional Health Concerns Assessment Noted Time PHQ-9 Depression Total Score: 6 04/09/19 25 11:16 AM EST documented as of this encounter Care Teams Speaker Mounter Relationship Specialty Start Date End Date Name, MD Escobar [address] [place] [id number] PCP - General Internal Medicine 04/09/24 documented as of this encounter
--- OUTSIDE RECORDS SUMMARY | 2024-10-06 09:33 | XMS_ITS | Clinical Summary ---
Author Organization [facility] Address [address] [place] [phone] Phone Care Team Providers Care Spray Rig Operator Name Role Phone Name, Escobar VILLATORO Primary Care Provider [phone] Medications lisinopriL (PRINIVIL,ZESTRI L) 10 mg tablet TAKE 1 TABLET BY MOUTH DAILY 100 tablet 2 04/23/2024 Active Surgical History Surgery Date Site/Laterality Comments BUNIONECTOMY in the s PROCEDURE: [place] CORRJ HLX VLGS BNCTY SESMDC W/DOUBLE OSTEOTOMY [...] Signed Date: 01/29/2024 08:38 ET Workstation ID: [id number] Transcribed By: Self Edit Transcribed Date: 01/29/2024 08:19 ET Narrative 01/29/2024 8:38 AM EST History: 73 year-old 45 pack-year former smoker, asymptomatic, for lung cancer screening. Quit smoking in 2010. Comparison: 12/25/22 (conventional thoracic CT) Technique: Helical volumetric imaging of the thorax was performed, using low- dose technique, without IV contrast. DLP: 157.66 mGy/cm CTDIvol: 4.89 mGy [employer] Iterative reconstruction technique Findings: Lungs and Airways: [...] IMPRESSION: IMPRESSION: Osteoporosis by WHO criteria. The [facility] Department of Internal Medicine recommends using [...] alternative screening schedule based on kamar Pettit., [facility] March 29, 2011 for patients with osteopenia [...] IMPRESSION: IMPRESSION: Osteoporosis by WHO criteria. The [facility] Department of Internal Medicine recommendsusing National [...] Maintenance Insurance [employer] MED[employer] Care Teams Spray Rig Operator Relationship Specialty Start Date End Date Name, MD Escobar [address] [place] [phone] PCP - General Internal Medicine 01/27/24
== END 2024-10-05 09:07 | disposition home or self-care (01) ==
LOC: HO.HOSX 09:06
PROVIDERS: Visit Provider Physician Assistant
DX: M70.61 Trochanteric bursitis, right hip (principal); M25.551 Pain in right hip; Z79.899 Other long term (current) drug therapy
CPT/HCPCS: 72170; 99202

== ENCOUNTER 2024-10-05 13:23 | Outpatient (AMB) | payer MEDICARE, SELFPAY ==
--- NOTE | 2024-10-05 13:46 | MHC.OFFVIS ---
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 Patient was seen by her PCP due to ongoing hip pain with weight bearing activities, x-rays were ordered and she was referred to orthopedics. No injury. Patient reports her pain has been present for about 9 months. Her pain is located at the lateral side of hip and is now radiating into her groin and thigh area. She states her discomfort comes with walking. Denies numbness or tingling. No previous treatment. 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 She states the pain has been present for approximately 9 months. She has pain located over the lateral aspect of the hip which does radiate to the anterior portion of the thigh. She states she is unable to sleep in a bed due to the pain and needs to sleep in a recliner. She denies groin pain. Denies low back or buttock pain. Denies numbness or tingling. No treatment to date. [facility] Medical History Cough Pneumonitis Shoulder stiffness Shoulder weakness Shoulder pain Dislocation of right shoulder joint Social History (Updated 10/05/24 @ 13:50 by Davida Andrea Rosalina) Patient Tobacco Use Status: Never used Tobacco Years Smoked: 10 years Current occupational status: unemployed Review of Systems Const All systems reviewed & are unremarkable except as noted in HPI and below Physical Exam Vital Signs: BMI result Body Mass Index 36.2 Const General: cooperative and no acute distress Orientation/consciousness: patient oriented x3 Resp Effort & Inspection: normal respiratory effort and able to speak in complete sentences Cardio Peripheral pulses: Peripheral pulses 2+ throughout Neuro General: patient oriented x3 Extrem Other: Right hip normal to inspection. No pain with ROM of the hip. Pain along the greater trochanter. No pain with hip flexion or abduction.There is no tenderness along the si joint, Negative SLR. NVI. Results Reviewed Results Reviewed: X-rays of the right hip obtained in the office today and reviewed by me show mild subchondral sclerosis of the acetabulum Assessment & Plan Assessment & Plan (1) Greater trochanteric bursitis of right hip: Code(s): M70.61 - Trochanteric bursitis, right hip Category: Medical Plan: We discussed options today which includes physical therapy in the benefits of strengthening conditioning of the hip stabilizers. She was given the contact information for physical therapy and we will call him to book an appointment. The order was placed today. I also discussed the benefits of steroid injection which she would like to hold off on at this time. I did send a prescription for Celebrex to the pharmacy which she will take twice a day for 2 weeks to help with inflammation and she can take occasionally thereafter. If symptoms persist or worsen she can contact our office to book a steroid injection otherwise she will follow up as needed. Orders: Orders XR pelvis 1-2V Today M25.559 - Pain in unspecified hip PT Evaluation and Treatment Today M70.61 - Trochanteric bursitis, right hip Medications: New celecoxib (Celebrex) 200 mg PO BID 60 caps 3RF 30 days Coding Level of Care Code New Pt Level 3 (38512) Complex EM visit Add On G2211 Diagnoses Greater trochanteric bursitis of right hip M70.61
[2024-10-05 13:54] VITALS: BMI 36.2
--- OUTSIDE RECORDS SUMMARY | 2024-10-05 14:05 | XMS_ITS ---
Author Name [facility] Care Team Organization Name Specialty Phone Email Start Date End Da te [facility] Joey Paiz Primary Care 01/16/2022
--- OUTSIDE RECORDS SUMMARY | 2024-10-05 14:05 | XMS_ITS | Encounter Summary ---
Author Organization [employer] Address [address] [place] [address] 7 [place] [address] Care Team Providers Care Can Operator Name Role Phone Name, Escobar VILLATORO Primary Care Provider [phone] Reason for Visit * Reason Onset Date Comments Med Refill 06/08/2024 Encounter Details Date Type Department Care Team (Late st Contact Info) Description 06/08/[address] [facility] & PEDS [address] [place], [place] [phone] Name, MD Escobar [address] [place] [address] Social History Tobacco Use Types Packs/Day Years [...] Info) Description 10/30/2024 9:[address] [facility] [address] [place] [phone] Name, MD Escobar [address] [place] [address] documented as of this encounter Visit Diagnoses Not on filedocumented in this encounter Additional Health Concerns Assessment Noted Time PHQ-9 Depression Total Score: 6 04/09/19 25 11:16 AM EST documented as of this encounter Care Teams Can Operator Relationship Specialty Start Date End Date Name, MD Escobar [address] [place] [phone] PCP - General Internal Medicine 04/09/24 documented as of this encounter
--- OUTSIDE RECORDS SUMMARY | 2024-10-05 14:05 | XMS_ITS | Clinical Summary ---
Author Organization [facility] Address [address] [place] [phone] Phone Care Team Providers Care Health And Wellness Manager Name Role Phone Name, Escobar VILLATORO Primary Care Provider [phone] Medications lisinopriL (PRINIVIL,ZESTRI L) 10 mg tablet TAKE 1 TABLET BY MOUTH DAILY 100 tablet 2 04/23/2024 Active Surgical History Surgery Date Site/Laterality Comments BUNIONECTOMY in the s PROCEDURE: [place] CORRJ HLX VLGS BNCTY SESMDC W/DOUBLE OSTEOTOMY [...] series) 2012 Colorectal Cancer Screening: Colonoscopy 02/17/2022 Falls Risk Assessment 02/17/2022 Hepatitis C Screening 02/17/2022 Medicare Annual Wellness Visit 02/17/2022 Social Influencers of Health Screening 02/17/2022 COVID-19 Vaccine ( season) 2023 12/14/2021, 07/06/2021, 02/03/2021, Additional history exists Depression Screening 03/11/2024 Hypertension/CHF/CAD Annual BMP Blood Test 07/10/2024 07/11/2023 [...] Signed Date: 01/29/2024 08:38 ET Workstation ID: [id number] Transcribed By: Self Edit Transcribed Date: 01/29/2024 08:19 ET Narrative 01/29/2024 8:38 AM EST History: 73 year-old 45 pack-year former smoker, asymptomatic, for lung cancer screening. Quit smoking in 2010. Comparison: 12/25/22 (conventional thoracic CT) Technique: Helical volumetric imaging of the thorax was performed, using low- dose technique, without IV contrast. DLP: 157.66 mGy/cm CTDIvol: 4.89 mGy [employer] Iterative reconstruction technique Findings: Lungs and Airways: [...] IMPRESSION: IMPRESSION: Osteoporosis by WHO criteria. The [facility] Department of Internal Medicine recommends using [...] alternative screening schedule based on kamar Pettit., [facility] March 29, 2011 for patients with osteopenia [...] IMPRESSION: IMPRESSION: Osteoporosis by WHO criteria. The [facility] Department of Internal Medicine recommendsusing National [...] Maintenance Insurance [employer] MEDICARE Care Teams Health And Wellness Manager Relationship Specialty Start Date End Date Name, MD Escobar [address] [place] [phone] PCP - General Internal Medicine 01/27/24
== END 2024-10-05 14:23 | disposition home or self-care (01) ==
LOC: HO.HOS 13:24
PROVIDERS: Visit Provider Physician Assistant
DX: M70.61 Trochanteric bursitis, right hip (principal)
CPT/HCPCS: 99203; G2211

== ENCOUNTER → 2024-10-05 13:26 | Outpatient (BNV) | payer MEDICARE, SELFPAY | PROVIDERS: Visit Provider Radiology Diagnostic Radiology | DX: M16.0 Bilateral primary osteoarthritis of hip (principal) | CPT/HCPCS: 72170 ==

== ENCOUNTER 2024-11-02 08:38 | Outpatient (REF) | payer MEDICARE, SELFPAY ==
--- OUTSIDE RECORDS SUMMARY | 2024-11-02 09:04 | XMS_ITS | Clinical Summary ---
Author Organization [facility] Address [address] [place] [id number] Phone Care Team Providers Care Software Development Advisor Name Role Phone Name, Escobar VILLATORO Primary Care Provider [phone] Medications lisinopriL (PRINIVIL,ZESTRI L) 10 mg tablet TAKE 1 TABLET BY MOUTH DAILY 100 tablet 2 04/23/2024 Active Surgical History Surgery Date Site/Laterality Comments BUNIONECTOMY in the s PROCEDURE: [place] CORRJ HLX VLGS BNCTY SESMDC W/DOUBLE OSTEOTOMY [...] Signed Date: 01/29/2024 08:38 ET Workstation ID: [id number] Transcribed By: Self Edit Transcribed Date: 01/29/2024 08:19 ET Narrative 01/29/2024 8:38 AM EST History: 73 year-old 45 pack-year former smoker, asymptomatic, for lung cancer screening. Quit smoking in 2010. Comparison: 12/25/22 (conventional thoracic CT) Technique: Helical volumetric imaging of the thorax was performed, using low- dose technique, without IV contrast. DLP: 157.66 mGy/cm CTDIvol: 4.89 mGy AppNeta Iterative reconstruction technique Findings: Lungs and Airways: [...] IMPRESSION: IMPRESSION: Osteoporosis by WHO criteria. The [facility] Department of Internal Medicine recommends using National [...] alternative screening schedule based on kamar Pettit., [facility] March 29, 2011 for patients [...] IMPRESSION: IMPRESSION: Osteoporosis by WHO criteria. The [facility] Department of Internal Medicine recommendsusing National Osteoporosis [...] Maintenance Insurance [employer] MEDICARE Care Teams Software Development Advisor Relationship Specialty Start Date End Date Name, MD Escobar [address] [place] [id number] PCP - General Internal Medicine 01/27/24
--- OUTSIDE RECORDS SUMMARY | 2024-11-02 09:04 | XMS_ITS | Encounter Summary ---
Author Organization [employer] Address [address] [place] [address] [address] [place] [address] Care Team Providers Care Manager Client Name Role Phone Name, Escobar VILLATORO Primary Care Provider [phone] Reason for Visit * Reason Onset Date Comments Med Refill 06/08/2024 Encounter Details Date Type Department Care Team (Late st Contact Info) Description 06/08/2024 Refill [facility] [address] [place], [place] [id number] Name, MD Escobar [address] [place] [address] Social History Tobacco Use Types Packs/Day Years [...] documented as of this encounter Care Teams Manager Client Relationship Specialty Start Date End Date Name, MD Escobar [address] [place] [address] PCP - General Internal Medicine 04/09/24 documented as of this encounter
[2024-11-02 14:44] LABS: Anion Gap 11 (12-20); Blood Urea Nitrogen 23 mg/dL (9-16); Calcium 8.8 mg/dL (8.4-10.2); Carbon Dioxide 25 mmol/L (22-29); Chloride 110 mmol/L (96-108); Estimated Glomerular Filt Rate 49; Magnesium 2.2 mg/dL (1.6-2.6); Potassium 4.5 mmol/L (3.3-5.1); Sodium 141 mmol/L (135-145)
== END 2024-11-02 08:39 | disposition home or self-care (01) ==
LOC: HO.CHCLDS 08:38
PROVIDERS: Visit Provider Internal Medicine Geriatric Medicine
DX: R25.2 Cramp and spasm (principal)
CPT/HCPCS: 36415; 80048; 83735

== ENCOUNTER 2024-11-11 08:49 | Outpatient (REF) | payer MEDICARE, SELFPAY ==
--- OUTSIDE RECORDS SUMMARY | 2024-11-11 09:19 | XMS_ITS | Encounter Summary ---
Author Organization [employer] Address [address] [facility] [address] [place] [address] Care Team Providers Care Comptometer Operator Name Role Phone Name, Escobar VILLATORO Primary Care Provider [phone] Encounter Details Date Type Department Care Team ([facility] st Contact Info) Description 11/03/2024 Results Follow-Up [facility] [address] [place], [place] [phone] Name, MD Escobar [address] [place] [address] Basic Metabolic Panel, Magnesium Social History Tobacco Use Types Packs/Day Years Used Date Smoking Tobacco: Former Cigarettes Smokeless Tobacco: Never Alcohol Use Standard Drinks/Week Comments Yes 0 (1 standard drink = 0.6 oz pur e alcohol) Depression Answer Date Recorded Patient Health Questionnaire-9 Score 3 10/14/2024 Patient Health Questionnaire-9 Score 3 10/14/2024 Last PHQ-9: Questionnaire Data Not on file 0 10/14/2024 Housing Stability Answer Date Recorded What is [...] Answer Date Recorded Patient Health Questionnaire-2 Score 0 10/14/2024 Internet Access Answer Date Recorded Internet Access Q1 Yes 04/09/2024 Internet Access Q2 Not on file 04/09/2024 Comments Unknown Sex and Gender Information Value Date Recorded Sex Assigned at Female 04/08/2024 8:23 AM EST Legal Sex Female 10:49 AM EDT Gender Identity Female 04/08/2024 8:23 AM EST Sexual Orientation Straight 04/08/2024 8: 23 AM EST documented as of this encounter Plan of Treatment Scheduled Orders Name Type Priority Associated Diagnoses Orde r Schedule Basic Metabolic Panel Lab Routine Elevated serum creatinine Expected: 11/03/2024 (Approximate), Expires: 11/03/2025 Urinalysis, Complete, with Reflex to Culture Lab Routine Elevated serum creatinine Expected: 11/03/2024 (Approximate), Expires: 11/03/2025 Albumin, Random Urine W/Creatinine Lab Routine Elevated serum creatinine Expected: 11/03/2024 (Approximate), Expires: 11/03/2025 documented as of this encounter Visit Diagnoses Diagnosis Elevated serum creatinine- Primary Other nonspecific findings on examination of blood documented in this encounter Additional Health Concerns Assessment Noted Time PHQ-9 Depression Total Score: 3 10/15/19 25 9:15 AM EDT documented as of this encounter Care Teams Comptometer Operator Relationship Specialty Start Date End Date Name, MD Escobar [address] [place] [id number] PCP - General Internal Medicine 04/09/24 documented as of this encounter
--- OUTSIDE RECORDS SUMMARY | 2024-11-11 09:19 | XMS_ITS | Clinical Summary ---
Author Organization [employer] Address [address] [place] [address] [address] [place] [address] Care Team Providers Care Due Diligence Coordinator Name Role Phone Name, Escobar VILLATORO Primary Care Provider [phone] Allergies No known active allergies Medications * This document contains information received from the source organization and may not represent a complete record from that organization. lisinopril 10 MG tablet Active levothyroxine (Synthroid, Levoxyl) 137 MCG tablet TAKE 1 TABLET BY MOUTH EVERY DAY 90 tablet 1 5 Active albuterol 108 (90 Base) MCG/ACT inhaler Inhale 2 puffs every 6 (six) hours if needed for wheezing. 18 g 2 5 Active oxybutynin XL (Ditropan XL) 5 MG 24 hr tablet TAKE 1 TABLET BY MOUTH EVERY DAY 90 tablet 5 Active buPROPion SR (Wellbutrin SR) 150 MG 12 hr tabletIndication s:Depression, unspecified depression type Take 1 tablet by mouth x 3 days THEN one tablet by mouth twice daily. Do not crush, chew, or split. 60 tablet 2 5 10/31/19 25 Discontinu ed(Side effects) Active Problems Problem Noted Date Diagnosed Date Seasonal allergies 08/12/2024 COPD, mild 08/12/2024 Caregiver stress syndrome 08/12/2024 Hypothyroidism 04/09/2024 Hypertension 04/09/2024 Osteoporosis without current pathological fractu re 04/09/2024 History of colonoscopy 04/09/2024 Encounters * This document contains information received from the source organization and may not represent a complete record from that organization. Date Type Department Care Team Description 11/03/2024 Results Follow-Up [address] [place] [address] Escobar Frazier MD Basic Metabolic Panel, Magnesium 10/30/2024 9:00 AM EDT Telemedicine [address] [place] [address] Escobar Frazier MD Caregiver stress syndrome (Primary Dx); Depression, unspecified depression type; Hip pain, unspecified laterality; Cramps, muscle, general 10/30/2024 Travel 10/26/2024 Travel 09/21/2024 Travel 09/16/2024 Refill [facility] [address] [place] [address] Escobar Frazier MD 09/15/2024 Orders Only [address] [address] Escobar Frazier MD 09/15/2024 Results Follow-Up [address] [address] Escobar Frazier MD BD DEXA Axial 08/31/2024 Travel 08/12/2024 9:45 AM EDT Office Visit [address] [address] Escobar Frazier MD Hypertension, unspecified type (Primary Dx); COPD, mild (CMS/HCC); Seasonal allergies; Lateral pain of right hip; Depression, unspecified depression type; Caregiver stress syndrome 08/12/[address] [address] Carrington Cuevas [place] bone density faxed 08/12/2024 Travel 08/11/[address] [address] Escobar Frazier MD Chart Prep from Last 3 Months Immunizations Immunization Administration Dates Next Due Influenza High-dose Quadriva lent Preservative Free 11/24/2021,12/24/2019 Influenza Injectable Quadriv alant Preservative Free IIV4 MDCK 12/18/2016 Influenza Quadrivalent Adjuvanted 12/23/2020 Influenza, High Dose Seasona l, Preservative Free 01/01/2023,11/24/2017 Influenza, IIV3, injectable 01/13/2016,0 11/19/2014,12/14/2013,11/25,12/21/2011,12/15/2010,01/23/2010 ,12/04/2008,12/22/2007,01/02/2007 Influenza, trivalent, adjuvanted 12/14/2023,11/10 Novel [id number], preservative-free 03/23/2009 Pneumococcal Conjugate PCV 13 02/04/2018 [...] Sign Reading Time Taken Comments Blood Pressure 132/82 08/12/2024 9:53 AM EDT Pulse 92 08/12/2024 9:53 AM EDT Temperature 36.2 C (97.2 F) 08/12/2024 9:53 AM EDT Respiratory Rate 12 08/12/2024 9:53 AM EDT Oxygen Saturation 96% 08/12/2024 9:53 AM EDT Inhaled Oxygen Concentration - - Weight 91.7 kg (202 lb 3.2 oz) 08/12/2024 9:53 A M EDT Height 157.5 cm (5' 2 ) 08/12/2024 9:53 AM EDT Body Mass Index 36.98 08/12/2024 9:53 AM EDT Plan of Treatment Health Maintenance Due Date Last Done Comments CT Colonography 1950 Colonoscopy 1950 Colorectal Cancer Screening 1950 FIT DNA/Cologuard 1950 FIT 1950 FOBT 1950 Sigmoidoscopy 1950 Hepatitis C Screening 1970 RSV Patients and Patients Aged 60 years or older (1 - Risk 60-74 years 1-dose series) 2012 COVID-19 Vaccine ( season) 2024 12/14/2021, 07/06/2021, 02/03/2021, Additional history exists Influenza Vaccine (#1) 2024 , 01/01/2023, 11/24/2021, Additional history exists SDOH Screening 04/09/2025 04/09/2024 Alcohol/Substance Use Screening 08/12/2025 08/12/2024 Tobacco Screening 08/12/2025 08/12/2024 Depression Screening 10/14/2025 10/14/2024, 10/15/19 Mammogram 09/15/2026 09/15/2024 Lipid Panel 04/21/2029 04/21/2024 DTaP/Tdap/Td Vaccines (3 [...] Procedure Name Priority Date/Time Associated Diagnosis Comments MAGNESIUM Routine 11/02/2024 8:39 AM EDT Cramps, muscle, general BASIC METABOLIC PANEL Routine 11/02/2024 8:39 AM EDT Cramps, muscle, general BD DEXA AXIAL Routine 09/15/2024 8:15 AM EDT Osteoporosis without current pathological fracture, unspecified osteoporosis type BI MAMMOGRAM SCREENING TOMOSYNTHESIS BILATERAL Routine 09/15/2024 8:10 AM EDT XR HIP 2 OR 3 VIEWS RIGHT Routine 08/12/2024 10:37 AM EDT Lateral pain of right hip LIPID PANEL, STANDARD Routine 04/21/2024 8:48 AM EST Screening for cholesterol level from Last 3 Months or Most Recently Relevant to Health Maintenance Results * Magnesium (11/02/2024 8:39 AM EDT) Magnesium 2.2 1.6 - 2.6 mg/dL [facility] Blood Venous blood specimen / Unknown 11/02/2024 8:39 AM EDT 11/02/2024 2:10 PM EDT us Escobar Frazier MD LAB BLOOD ORDERABLES Final Resul t [facility] [address] [place] [phone] * (ABNORMAL) Basic Metabolic Panel (11/02/2024 8:39 AM EDT) Pathologist [facility] [place] Sodium 141 135 - 145 mmol/L [facility] Potassium 4.5 3.3 - 5.1 mmol/L [facility] Chloride 110(H) 96 - 108 mmol/L [facility] Carbon Dioxide 25 22 - 29 mmol/L [facility] Anion Gap 11(L) 12 - 20 [facility] Urea Nitrogen (BUN) 23(H) 9 - 16 mg/dL [facility] Creatinine, Serum 1.09 0.5 - 1.4 mg/dL [facility] Estimated Glomerular Filt Rate 49 [facility] Comment:Chronic Kidney Disea se: Estimated GFR < 60 mL/min/1.64s3Vrvydc Kidney Disease: Estimated GFR < 15 mL/min/1.73m2 Glucose 104 60 - 115 mg/dL [facility] Calcium 8.8 8.4 - 10.2 mg/dL [facility] Blood Venous blood specimen / Unknown 11/02/2024 8:39 AM EDT 11/02/2024 2:10 PM EDT us Escobar Frazier MD LAB BLOOD ORDERABLES Final Resul t [facility] [address] [place] [address] [phone] * BD DEXA Axial (09/15/2024 8:15 AM EDT) Anatomical Region Laterality Modality Body Radiographic Verito ging 09/15/2024 8:15 AM EDT Narrative 09/15/2024 8:42 AM EDT [facility] [address] [place] [address] Mammography Report Signed Patient: Marianne Hodges MR#: [id number] : 1950 Acct:[id number] Age/Sex: 73 / F ADM Date: 09/15/24 Loc: MAMMO Attending Dr: Escobar Frazier MD Ordering Physician: Escobar Frazier MD Results: Date of Service: 09/15/24 Follow Up: Procedure(s): XR DEXA axial skeleton Accession Number(s): [id number] cc: Escobar Frazier MD EXAMINATION: DXA BONE DENSITY AXIAL HISTORY: osteoporosis TECHNIQUE: [employer] Dual energy absorptiometry (DEXA) of the lumbar spine, total left hip, and femoral neck was performed. COMPARISON: There are no prior studies for comparison. FINDINGS: The bone mineral density of the lumbar spine is 1.089 g/cm2, corresponding to a T-score of -0.8, and a Z-score of 0.1. This is indicative of normal bone mineral density. The bone mineral density of the left total hip is 0.856 g/cm2, corresponding to a T-score of -1.2, and a Z-score of -0.2. This is indicative of osteopenia. The bone mineral density of the left femoral neck is 0.724 g/cm2, corresponding to a T-score of -2.3, and a Z-score of -1.0. This is indicative of osteopenia. FRACTURE RISK: The FRAX index suggests a risk of major osteoporotic fracture of 12.8%, and of hip fracture 3.0%. MM/XR DEXA axial skeleton IMPRESSION: Based on bone mineral density, and according to World Health Organization (WHO) criteria, the diagnosis is consistent with osteopenia. Statistically, 68% of repeat scans fall within 1 SD (+/- 0.010 g/cm2 for AP spine L1-L4) and 1 SD (+/- 0.012 g/cm2 for femur total) FRAX is a trademark of the [employer] Metabolic Bone Disease, a World Health Organization (WHO) Collaborating Center. Electronically signed by: Chad Coates MD 09/15/2024 08:39 AM EDT RP Dictated By: Chad Coates MD Signed By: <Electronically signed by Chad Coates MD in OV> 09/15/2439 DD/ 4 TD/TT: 09/15/248[address] Eligibility Consultant: Procedure Note Donotuseinterpreter, Image - [facility]/15/2024 [facility] [address] [place] [address] Mammography Report Signed Patient: Marianne Hodges LMR#: [id number] : 1950cct:[id number] Age/Sex: 73 / FADM Date: 09/15/24 Loc: HO.MAMMO Attending Dr: Escobar Frazier MD Ordering Physician: Escobar Frazieresults: Date of Service: 09/15/24Follow Up: Procedure(s): XR DEXA axial skeleton Accession Number(s): [id number] cc: Escobar Frazier MD EXAMINATION: DXA BONE DENSITY AXIAL HISTORY: osteoporosis TECHNIQUE: [employer] Dual energy absorptiometry (DEXA) of the lumbar spine, total left hip, and femoral neck was performed. COMPARISON: There are no prior studies for comparison. FINDINGS: The bone mineral density of the lumbar spine is 1.089 g/cm2, corresponding to a T-score of -0.8, and a Z-score of 0.1. This is indicative of normal bone mineral density. The bone mineral density of the left total hip is 0.856 g/cm2, corresponding to a T-score of -1.2, and a Z-score of -0.2. This is indicative of osteopenia. The bone mineral density of the left femoral neck is 0.724 g/cm2, corresponding to a T-score of -2.3, and a Z-score of -1.0. This is indicative of osteopenia. FRACTURE RISK: The FRAX index suggests a risk of major osteoporotic fracture of 12.8%, and of hip fracture 3.0%. MM/XR DEXA axial skeleton IMPRESSION: Based on bone mineral density, and according to World Health Organization (WHO) criteria, the diagnosis is consistent with osteopenia. Statistically, 68% of repeat scans fall within 1 SD (+/- 0.010 g/cm2 for AP spine L1-L4) and 1 SD (+/- 0.012 g/cm2 for femur total) FRAX is a trademark of the [employer] for Metabolic Bone Disease, a World Health Organization (WHO) Collaborating Center. Electronically signed by: Chad Coates MD 09/15/2024 08:39 AM EDT Dictated By: Chad Coates MD Signed By: <Electronically signed by Chad Coates MD in OV> 09/15/2439 DD/ 4 TD/TT: 09/15/24824 Eligibility Consultant: Escobar Frazier MD [facility] [place] Edited Result - Final * BI Mammogram Screening Tomosynthesis Bilateral (09/15/2024 8:10 AM EDT) Anatomical Region Laterality Modality Breast Bilateral Mammography 09/15/2024 8:10 AM EDT Narrative 09/28/2024 8:46 AM EDT [facility] [address] [place], [place] [address] Mammography Report Signed Patient: Marianne Hodges MR#: [id number] : 1950 Acct:[id number] Age/Sex: 73 / F ADM Date: 09/15/24 Loc: MAMMO Attending Dr: Escobar Frazier MD Ordering Physician: Escobar Frazier MD Results: 1Negative Date of Service: 09/15/24 Follow Up: 1 Year From Orig ina Mammogram Procedure(s): MM tomosynthesis screening BI Accession Number(s): [id number] cc: Escobar Frazier MD EXAMINATION: MM SCREENING DIGITAL BREAST TOMOSYNTHESIS, BILATERAL CLINICAL INFORMATION: Screening. Asymptomatic. COMPARISON: Mammography: Comparison is made with available priors TECHNIQUE: Digital breast mammography with tomosynthesis is performed in both the craniocaudal and mediolateral oblique views along with computer-aided detection (CAD). FINDINGS: There are scattered areas of fibroglandular density (ACR BI-RADS breast composition Category b). There are no significant masses, abnormal calcifications, or other abnormalities. MM/MM tomosynthesis screening BI IMPRESSION: No mammographic evidence of malignancy. ASSESSMENT: BI-RADS BI-RADS 1 - Negative RECOMMENDATION: Routine annual mammography screening. 1 year F/U This examination should not preclude the clinical evaluation of a suspicious palpable abnormality. This patient's information was entered into a reminder system with a target due date for their next mammogram. Electronically signed by: Heaven Cunha DO 09/28/2024 08:43 AM EDT Dictated By: Heaven Cunha DO Signed By: <Electronically signed by Heaven Cunha DO in OV> 09/28/24 0843 DD/ 0810 TD/TT: 09/15/24 0840 Eligibility Consultant: Procedure Note Donotuseinterpreter, Image - 09/28/2024 [facility] [address] [place] [address] Mammography Report Signed Patient: Marianne Hodges LMR#: [id number] : 1950cct:[id number] Age/Sex: 73 / FADM Date: 09/15/24 Loc: MAMMO Attending Dr: Escobar Frazier MD Ordering Physician: Escobar Frazier MDResults: 1Negative Date of Service: 09/15/24Follow Up: 1 Year From Orig inal Mammogram Procedure(s): MM tomosynthesis screening BI Accession Number(s): [id number] cc: Escobar Frazier MD EXAMINATION: MM SCREENING DIGITAL BREAST TOMOSYNTHESIS, BILATERAL CLINICAL INFORMATION: Screening. Asymptomatic. COMPARISON: Mammography: Comparison is made with available priors TECHNIQUE: Digital breast mammography with tomosynthesis is performed in both the craniocaudal and mediolateral oblique views along with computer-aided detection (CAD). FINDINGS: There are scattered areas of fibroglandular density (ACR BI-RADS breast composition Category b). There are no significant masses, abnormal calcifications, or other abnormalities. MM/MM tomosynthesis screening BI IMPRESSION: No mammographic evidence of malignancy. ASSESSMENT: BI-RADS BI-RADS 1 - Negative RECOMMENDATION: Routine annual mammography screening. 1 year F/U This examination should not preclude the clinical evaluation of a suspicious palpable abnormality. This patient's information was entered into a reminder system with a target due date for their next mammogram. Electronically signed by: Heaven Cunha DO 09/28/2024 08:43 AM EDT Dictated By: Heaven Cunha DO Signed By: <Electronically signed by Heaven Cunha DO in OV> 09/28/24 0843 DD/ 0810 TD/TT: 09/15/24 0840 Eligibility Consultant: Escobar Frazier MD IMG BI PROCEDURES Final Result * XR Hip 2 or 3 Views Right (08/12/2024 10:37 AM EDT) Anatomical Region Laterality Modality Lower Extremities, Hip Right Radiograp hic Imaging 08/12/2024 10:3 7 AM EDT Narrative 08/12/2024 1:08 PM EDT [address] [address] XRay Report Signed Patient: Marianne Hodges MR#: [id number] : 1950 Acct:[id number] Age/Sex: 73 / F ADM Date: 08/12/24 Loc: HO.HHCX Attending Dr: Escobar Frazier MD Ordering Physician: Escobar Frazier MD Date of Service: 08/12/24 Procedure(s): XR hip RT min 2V Accession Number(s): [id number] cc: Escobar Frazier MD EXAMINATION: XR HIP, RIGHT CLINICAL INFORMATION: Right lateral hip pain on and off for the past year COMPARISON: None available. TECHNIQUE: Two views of the right hip. FINDINGS: Hip joint space is congruent and preserved. No osteophytes are evident. No chondrocalcinosis is noted. There is moderate sclerosis, narrowing, and irregularity of the pubic symphysis joint. Eggshell calcification lateral to the iliac crest is probably related to fat necrosis. XR/XR hip RT min 2V IMPRESSION: Unremarkable right hip. 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 Electronically signed by: Mingo Ibanez MD 08/12/2024 01:05 PM EDT Dictated By: Mingo Ibanez MD Signed By: <Electronically signed by Mingo Ibanez MD in OV> 08/12/24 1305 DD/ 1037 TD/TT: 08/12/24 1045 Eligibility Consultant: Procedure Note Emelyter, Image - 08/12/2024 [place] [address] XRay Report Signed Patient: Marianne Hodges LMR#: [id number] : 1950cct:[id number] Age/Sex: 73 / FADM Date: 08/12/24 Loc: HO.HHCX Attending Dr: Escobar Frazier MD Ordering Physician: Escobar Frazier MD Date of Service: 08/12/24 Procedure(s): XR hip RT min 2V Accession Number(s): [id number] cc: Escobar Frazier MD EXAMINATION: XR HIP, RIGHT CLINICAL INFORMATION: Right lateral hip pain on and off for the past year COMPARISON: None available. TECHNIQUE: Two views of the right hip. FINDINGS: Hip joint space is congruent and preserved. No osteophytes are evident. No chondrocalcinosis is noted. There is moderate sclerosis, narrowing, and irregularity of the pubic symphysis joint. Eggshell calcification lateral to the iliac crest is probably related to fat necrosis. XR/XR hip RT min 2V IMPRESSION: Unremarkable right hip. 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 Electronically signed by: Mingo Ibanez MD 08/12/2024 01:05 PM EDT RP Dictated By: Mingo Ibanez MD Signed By: <Electronically signed by Mingo Ibanez MD in OV> 08/12/24 1305 DD/ 1037 TD/TT: 08/12/24 1045 Eligibility Consultant: us Escobar Name IMG XR PROCEDURES Final Result * (ABNORMAL) Lipid Panel, Standard (04/21/2024 8:48 AM EST) Triglycerides 114 <150 mg/dL [facility] Comment:Desirable Triglyceri de: less than 150 mg/dLBorderline High Triglyceride 150-199 mg/dLHigh Triglyceride: 200-499 mg/dLVery High Triglyceride: greater than or equal to 5OO mg/dL Cholesterol 207(H) <200 mg/dL [facility] Comment:Desirable Cholestero l: less than 200 mg/dLBorderline High Cholesterol: 200-239 mg/dLHigh Cholesterol: greater than 239 mg/dL LDL Cholesterol Calculated 116(H) <100 mg/dL [facility] Comment:Desirable LDL: less than 100 mg/dLNear Optimal/Above Optimal LDL: 110- 129 mg/dLBorderline High LDL: 130-159 mg/dLHigh LDL: 160-189 mg/dLVery High LDL: greater than or equal to 190 mg/dL HDL Cholesterol 69 >40 mg/dL [facility] Comment:Desirable HDL: great er than 40 mg/dL Note: This HDL assay may give artificially low results in patients with liver disease. Blood Venous blood specimen / Unknown 04/21/2024 8:48 AM EST 04/21/2024 2:01 PM EST us Escobar Name LAB BLOOD ORDERABLES Final Resul t [facility] [address] [place] [phone] [phone] from Last 3 Months or Most Recently Relevant to Health Maintenance Insurance [facility] MEDICARE ADVANTAGE HMO Care Teams Due Diligence Coordinator Relationship Specialty Start Date End Date Name, MD Escobar [address] [place] [phone] PCP - General Internal Medicine 04/09/24
--- OUTSIDE RECORDS SUMMARY | 2024-11-11 09:19 | XMS_ITS | Clinical Summary ---
Author Organization [facility] Address [address] [place] [phone] Phone Care Team Providers Care Attorney General Name Role Phone Name, Escobar VILLATORO Primary Care Provider [phone] Medications lisinopriL (PRINIVIL,ZESTRI L) 10 mg tablet TAKE 1 TABLET BY MOUTH DAILY 100 tablet 2 04/23/2024 Active Surgical History Surgery Date Site/Laterality Comments BUNIONECTOMY in the s PROCEDURE: SC CORRJ HLX VLGS BNCTY SESMDC W/DOUBLE OSTEOTOMY [...] 02/17/2022 Social Influencers of Health Screening 02/17/2022 Depression Screening 03/11/2024 Hypertension/CHF/CAD Annual BMP Blood Test 07/10/2024 07/11/2023 COVID-19 Vaccine ( season) 2024 12/14/2021, 07/06/2021, [...] Signed Date: 01/29/2024 08:38 ET Workstation ID: [id number] Transcribed By: Self Edit Transcribed Date: 01/29/2024 08:19 ET Narrative 01/29/2024 8:38 AM EST History: 73 year-old 45 pack-year former smoker, asymptomatic, for lung cancer screening. Quit smoking in 2010. Comparison: 12/25/22 (conventional thoracic CT) Technique: Helical volumetric imaging of the thorax was performed, using low- dose technique, without IV contrast. DLP: 157.66 mGy/cm CTDIvol: 4.89 mGy 1Ring Iterative reconstruction technique Findings: Lungs and Airways: [...] IMPRESSION: IMPRESSION: Osteoporosis by WHO criteria. The [facility] Department of Internal Medicine recommends using [...] alternative screening schedule based on kamar Pettit., [facility] March 29, 2011 for patients with [...] IMPRESSION: IMPRESSION: Osteoporosis by WHO criteria. The [facility] Department of Internal Medicine recommendsusing National [...] Maintenance Insurance [employer] MEDICARE Care Teams Attorney General Relationship Specialty Start Date End Date Name, MD Escobar [address] [place] [phone] PCP - General Internal Medicine 01/27/24
--- OUTSIDE RECORDS SUMMARY | 2024-11-11 09:19 | XMS_ITS | Encounter Summary ---
Author Organization [employer] Address [address] [place] [address] [address] [place] [address] Care Team Providers Care Business Continuity Planner Name Role Phone Name, Escobar VILLATORO Primary Care Provider [phone] Reason for Visit * Reason Onset Date Comments Med Refill 06/08/2024 Encounter Details Date Type Department Care Team (Late st Contact Info) Description 06/08/2024 Refill [facility] [address] [place], [place] [phone] Name, MD Escobar [address] [place] [address] Social History Tobacco Use Types Packs/Day Years [...] documented as of this encounter Care Teams Business Continuity Planner Relationship Specialty Start Date End Date Name, MD Escobar [address] [place] [address] PCP - General Internal Medicine 04/09/24 documented as of this encounter
--- OUTSIDE RECORDS SUMMARY | 2024-11-11 09:19 | XMS_ITS | Encounter Summary ---
Author Organization [employer] Address [address] [facility] [address] [place] [address] Care Team Providers Care Soft Mud Molder Name Role Phone Name, Escobar VILLATORO Primary Care Provider [phone] Encounter Details Date Type Department Care Team ([facility] st Contact Info) Description 09/15/2024 Results Follow-Up [facility] MEDICINE [address] [place], [place] [phone] Name, MD Escobar [address] [place] [address] BD DEXA Axial Social History Tobacco Use Types Packs/Day Years Used Date Smoking Tobacco: Former Cigarettes Smokeless Tobacco: Never Alcohol Use Standard Drinks/Week Comments Yes 0 (1 standard drink = 0.6 oz pur e alcohol) Depression Answer Date Recorded Patient Health Questionnaire-9 Score 6 09/01/2024 Patient Health Questionnaire-9 Score 6 09/01/2024 Last PHQ-9: Questionnaire Data Not on file 0 09/01/2024 Housing Stability Answer Date Recorded What is [...] Answer Date Recorded Patient Health Questionnaire-2 Score 1 09/01/2024 Internet Access Answer Date Recorded Internet Access [...] Noted Time PHQ-9 Depression Total Score: 6 09/02/19 25 9:00 AM EDT documented as of this encounter Care Teams Soft Mud Molder Relationship Specialty Start Date End Date Name, MD Escobar [address] [place] [address] PCP - General Internal Medicine 04/09/24 documented as of this encounter
--- OUTSIDE RECORDS SUMMARY | 2024-11-11 09:19 | XMS_ITS | Encounter Summary ---
Author Organization [employer] Address [address] [place] [address] [address] [place] [address] Care Team Providers Care Copra Sampler Name Role Phone Name, Escobar VILLATORO Primary Care Provider [phone] Reason for Visit * Reason Onset Date Comments Med Refill 06/08/2024 Encounter Details Date Type Department Care Team (Late st Contact Info) Description 06/08/2024 Refill [facility] [address] [place], [place] [id number] Name, MD Escobar [address] [place] [address] Social History Tobacco Use Types Packs/Day Years [...] documented as of this encounter Care Teams Copra Sampler Relationship Specialty Start Date End Date Name, MD Escobar [address] [place] [address] PCP - General Internal Medicine 04/09/24 documented as of this encounter
[2024-11-11 14:11] LABS: Appearance Urine Clear; Glucose Urine UA Negative (Negative); PH 5.5 (5.0-9.0); Specific Gravity - Urine 1.010 (1.005-1.025); UMIC TRIGGER UACC YES
[2024-11-11 14:18] LABS: UACC Culture Trigger YES
[2024-11-11 14:27] LABS: Anion Gap 12 (12-20); Blood Urea Nitrogen 18 mg/dL (9-16); Calcium 9.0 mg/dL (8.4-10.2); Carbon Dioxide 25 mmol/L (22-29); Chloride 109 mmol/L (96-108); Estimated Glomerular Filt Rate 56; Potassium 4.3 mmol/L (3.3-5.1); Sodium 142 mmol/L (135-145)
[2024-11-11 15:23] LABS: Microalbum/Creatinine Ratio Ur 14.4 ug/mg cr (<30)
== END 2024-11-11 08:50 | disposition home or self-care (01) ==
LOC: HO.CHCLDS 08:49
PROVIDERS: Visit Provider Internal Medicine Geriatric Medicine
DX: R79.89 Other specified abnormal findings of blood chemistry (principal)
CPT/HCPCS: 36415; 80048; 81001; 82043; 82570; 87086

== ENCOUNTER 2024-12-01 09:00 | Outpatient (RCR) | payer MEDICARE, SELFPAY ==
--- NOTE | 2024-10-27 10:45 | MHC.PT.EP ---
[facility] [place] [facility] [place] [facility] [place] [facility] [address] [phone] F: [phone] F: [phone] F: [phone] F: [phone] Physical Therapy Plan of Care Date of Evaluation: 10/27/24 Date of Surgery: n/a Diagnosis: greater trochanteric bursitis of R hip Assessment: Patient is a 73 year old female presenting to PT with complaints of pain in her R hip. Pt reports onset of pain began about a year ago due to insidious onset. She presents today with impairments in pain, lumbar ROM, hip strength, core strength, soft tissue restrictions. Pt's current occupation is retired, with baseline physical activities including ambulating, standing, investigator fraud, ADLs, sleeping in bed. Pt expresses custodial goal of reducing pain, and is motivated to work towards this in PT. Clinical presentation today is most consistent with signs and sx associated with R hip pain and pt will benefit from skilled PT 2 week x 4 weeks to address the following problems and impairments noted upon evaluation: pain, lumbar ROM, hip strength, core strength, soft tissue restrictions. These problems limit the patient with the following functional activities: ambulating, standing, investigator fraud, ADLs, sleeping in bed. The prescribed treatment plan of care is medically necessary. Co-morbidities of hx lumbar discectomy 2019 were identified and taken into considerations of plan of care. Pt was educated on HEP, role of PT, prognosis, POC. Frequency and Duration: The patient will be seen 2 x week x 4 weeks Short Term Goals: Pt will demonstrate ability to move through lumbar ROM without cramping in 2 weeks. Pt will demonstrate improved hip MMT strength by 1/3 grade in 2 weeks. Clerical Proofreader Goals: Pt will demonstrate improved LEFI score by 9 points in 4 weeks for improved functional mobility. Pt will demonstrate ability to ambulate with min to no pain in 4 weeks for return to PLOF. Pt will demonstrate ability to complete investigator fraud/ADLs with min to no pain in 4 weeks for return to PLOF. Treatment Plan: Modalities to reduce pain, spasms and effusion. Manual therapy to restore motion and function. Therapeutic exercise to improve strength and flexibility. Neuromuscular re-education for posture and balance. Therapeutic activities to return to functional activities of daily living. Electronically signed by: Masha Lacy, PT, DPT, ATC Please sign and return to therapist. Thank you for your referral.
--- NOTE | 2024-12-22 09:36 | MHC.PT.DC ---
[facility] [place] Office [place] [facility] [place] [facility] [address] [phone] F: [phone] F: [phone] F: [phone] F: [phone] Physical Therapy Discharge Report Diagnosis: greater trochanteric bursitis of R hip Date of Surgery: n/a Date of Evaluation: 10/27/24 Date of Discharge: 12/22/24 Treatments to Date: 5 Cancellations to Date: 0 No Shows to Date: 0 Discharge Status: Recommend MD Follow-up Discharge Summary: Chart was kept open and pt has not returned to PT. Her insurance end date is tomorrow and at last visit recommend to follow up with MD. Electronically signed by: Masha Lacy, PT, DPT, aTC Please sign and return to therapist. Thank you for your referral.
== END 2024-12-22 09:36 | disposition home or self-care (01) ==
LOC: HO.PTCHIC 09:00
PROVIDERS: PCP Internal Medicine Geriatric Medicine; Visit Provider Physician Assistant
DX: M70.61 Trochanteric bursitis, right hip (principal)
CPT/HCPCS: 97110; 97140; 97161

== ENCOUNTER 2024-12-17 08:04 | Outpatient (REF) | payer MEDICARE, SELFPAY ==
[2024-12-17 14:55] LABS: Chlamydia pneumoniae PCR Not Detected (Not Detect.); Coronavirus 229E PCR Not Detected (Not Detect.); Coronavirus HKU1 PCR Not Detected (Not Detect.); Coronavirus NL63 PCR Not Detected (Not Detect.); Coronavirus OC43 PCR Not Detected (Not Detect.); RSV PCR Not Detected (Not Detect.); Rhino/Enterovirus PCR Detected (Not Detect.); SARS-CoV-2 PCR Not Detected (Not Detect.)
[2024-12-17 15:06] LABS: Influenza A H1 PCR Not Detected (Not Detect.); Influenza A H1-2009 PCR Not Detected (Not Detect.); Influenza A H3 PCR Not Detected (Not Detect.)
== END 2024-12-17 08:05 | disposition home or self-care (01) ==
LOC: HO.LNP 08:04
PROVIDERS: PCP Internal Medicine Geriatric Medicine; Visit Provider Physician Assistant Medical
DX: R05.1 Acute cough (principal); R51.9 Headache, unspecified; R09.81 Nasal congestion; J45.909 Unspecified asthma, uncomplicated; Z79.899 Other long term (current) drug therapy
CPT/HCPCS: 87633

== ENCOUNTER 2024-12-17 08:04 | Outpatient (AMB) | payer MEDICARE, SELFPAY ==
--- NOTE | 2024-12-17 08:05 | MHC.OFFWIV ---
Intake Vital Signs 12/17/24 08:06 Height 5 ft 2 in Weight 208 lb BMI 38.0 BP 136/80 Blood Pressure Location Rt brachial Position Sitting Respiration 17 Pulse 95 Pulse Source Pulse Oximeter Temp 98.3 F Temp Source Oral Pulse Oximetry (%) 99 Oxygen Delivery Method Room Air Intake Visit Reasons: EP Cough Intake Note: Pt is here today c/o cough x5days Patient Tobacco Use Status: Never used Tobacco Allergies No Known Allergies (No Known Allergies*) Allergy (Verified 12/17/24 08:06) HPI HPI Comments History of Present Illness Details History - The patient is a 74-year-old female presenting with symptoms of coughing, wheezing, and headaches. - Symptoms began on Saturday with coughing, initially attributed to ragweed allergies. - By Saturday, wheezing and headaches developed, with some congestion. - The patient has asthma, managed with albuterol, which has been ineffective recently. - Symptom management included teas and Aleve D, with partial relief noted. - No fever, ear pain, or sore throat was reported, and the throat condition improved. - She denies sick contacts or travel. - She denies nausea, vomiting, abd pain, sore throat, or ear pain. Physical Exam General: Cooperative, healthy appearing, comfortable and no acute distress Orientation/consciousness: Patient oriented x3 Limitations: No limitations Head: Normal to inspection Ears: Hearing grossly normal bilaterally, external ears normal and TM's normal bilaterally Nose: Normal external nose present, normal nares present, and no nasal discharge present. Face and sinus: Sinuses nontender to palpation. Mouth: Normal oral and palatal mucosa present and moist mucous membranes noted. Throat: Tonsils normal. Uvula is midline. Posterior oropharynx with erythema and no exudates. Eyes: Appearance normal, both eyes and all related structures Neck: Normal visual inspection, full ROM. No lymphadenopathy noted. Respiratory: Scattered wheezing noted. Normal respiratory effort, able to speak in complete sentences. No respiratory distress, not tachypneic, no tripod positioning and no use of accessory muscles. Cardiovascular: Regular rate and rhythm. Normal S1 and S2 Skin: No rashes or lesions noted Patient was informed and verbally consented to the use of an ambient scribe for clinic note documentation during this visit [facility] Medical History Cough Pneumonitis Shoulder stiffness Shoulder weakness Shoulder pain Dislocation of right shoulder joint Social History (Updated 10/05/24 @ 13:50 by KAYKAY Bunn) Patient Tobacco Use Status: Never used Tobacco Years Smoked: 10 years Current occupational status: unemployed Review of Systems Const All systems reviewed & are unremarkable except as noted in HPI and below Physical Exam Vital Signs: Last Vital Signs Temp 98.3 F 12/17/24 08:06 Pulse 95 12/17/24 08:06 Resp 17 12/17/24 08:06 BP 136/80 12/17/24 08:06 Pulse Ox 99 12/17/24 08:06 Oxygen Delivery Method Room Air 12/17/24 08:06 BMI result Body Mass Index 38.0 Assessment & Plan Assessment & Plan (1) Cough: Code(s): R05.9 - Cough, unspecified Qualifiers: Cough type: acute Qualified Code(s): R05.1 - Acute cough Plan Most likely URI vs covid vs flu vs viral illness vs asthma exacebation plan - Prescribed prednisone and cough medicine to manage symptoms. - Advised to continue using albuterol inhaler and consider refilling if necessary. - Conducted respiratory panel testing for COVID-19, RSV, and influenza. - Await results to determine further management steps. - tylenol or motrin as needed - tessalon perles as needed for cough - prednisone for 5 days - follow up with PCP Orders: Orders Resp Pathogen Panel - [facility] [place] Today J06.9 - Acute upper respiratory infection, unspecified Medications: New benzonatate 100 mg PO bid-tid PRN 21 caps 0RF Cough 7 days prednisone 40 mg (2 x 20 mg) PO DAILY 10 tabs 0RF 5 days Coding Level of Care Code Est Pt Level 3 (45455) Diagnoses Acute cough R05.1 Cough type: acute
[2024-12-17 08:06] VITALS: BP 136/80; PULSE 95; RESP 17; TEMP 36.8; O2SAT 99; BMI 38.0
== END 2024-12-17 08:42 | disposition home or self-care (01) ==
PROVIDERS: PCP Internal Medicine Geriatric Medicine; Visit Provider Physician Assistant Medical
DX: R05.1 Acute cough (principal)